=== PATIENT | male | born 1930 | race Caucasian/White ===

== ENCOUNTER 2020-02-14 12:14 | Outpatient (CLI) | payer MEDICARE, OTHER | END 2020-02-14 12:15 | disposition critical access hospital (66) | LOC: EMS 12:14 | PROVIDERS: ATTEND Surgery | DX: R63.0 Anorexia (principal); R53.1 Weakness; R32 Unspecified urinary incontinence; R41.0 Disorientation, unspecified | CPT/HCPCS: A0425; A0429 ==

== ENCOUNTER 2020-02-14 12:31 | Inpatient (IN) | payer MEDICARE, OTHER ==
--- NOTE | 2020-02-14 12:41 | ED Physician Documentation ---
PD HPI ALTERED MENTAL STATUS - Stated complaint Stated Complaint: WEAKNESS - History obtained from History obtained from: EMS - History of Present Illness Timing - onset: Today, Other (This is a demented 89-year-old gentleman who presents by ambulance. He is unable to provide any history, all of the history is from the paramedics and his primary care physician called prior to arrival. Reportedly he is demented. I do not know anything else about his medical history initially.) - Additional information Additional information: No family has arrived available on initial arrival. I am led to believe they are on the way to the hospital. I do not have a medication list. Review of Systems Unable to obtain: Confused, Dementia PD PAST MEDICAL HISTORY - Past Medical History Cardiovascular: Hypertension, High cholesterol, Coronary artery disease, Peripheral Vascular Disease, [place] Respiratory: COPD Neuro: Dementia, Other Endocrine/Autoimmune: None GI: None : None HEENT: Chronic vision loss Psych: None Musculoskeletal: None Derm: Eczema, Other - Past Surgical History Past Surgical History: Yes Cardiovascular: CABG - Present Medications Home Medications: Ambulatory Orders Medication Instructions Recorded Confirmed Spironolactone 25 mg PO DAILY 01/05/19 10/03/19 Furosemide [Lasix] 20 mg PO DAILY 09/21/19 10/03/19 Potassium Chloride 10 meq PO DAILY 09/21/19 10/03/19 Simvastatin [Zocor] 5 mg PO DAILY 09/21/19 10/03/19 Clindamycin [Cleocin] 300 mg PO DAILY 10/03/19 10/03/19 - Allergies Allergies/Adverse Reactions: Allergies Allergy/AdvReac Type Severity Reaction Status Date / Time hydrochlorothiazide Allergy Unknown Verified 09/21/19 15:03 influenza virus vacc Allergy Unknown Verified 09/21/19 15:03 trivalent, split [From Fluzone] - Social History Does the pt smoke?: Yes Smoking Status: Former smoker Does the pt drink ETOH?: Yes PD ED PE NORMAL - Vitals Vital signs reviewed: Yes - General General: Other (He is alert, but does not follow commands. He is talking, but does not say anything useful, did say "hey" once, and otherwise asked "are you trying to kill me?" He is disheveled and incontinent of urine) - HEENT HEENT: PERRL, EOMI - Neck Neck: Supple, no meningeal sign, No bony TTP - Cardiac Cardiac: RRR (Sternotomy scar), No murmur - Respiratory Respiratory: No respiratory distress, Other (Diminished at the left base) - Abdomen Abdomen: Other (Mild diffuse tenderness) - Back Back: No CVA TTP, No spinal TTP - Derm Derm: Normal color, Warm and dry - Extremities Extremities: Other (Chronic appearing venous stasis cellulitis of the legs) - Neuro Eye Opening: Spontaneous Motor: Localizes to Pain Verbal: Inappropriate GCS Score: 12 Results - Vitals Vitals: Vital Signs - 24 hr 02/14/20 02/14/20 12:31 13:30 Temperature 36.6 C Heart Rate 80 86 Respiratory 18 13 Rate Blood Pressure 152/78 H 133/79 H O2 Saturation 97 97 Oxygen O2 Source Room air - EKG (time done) 1300 Rate: Rate (enter#) (88) Rhythm: NSR (With PACs) [place]: Normal Intervals: Other (IVCD) QRS: Normal Ischemia: Non specific changes Computer interpretation: Agree with computer - Labs Labs: Laboratory Tests 02/14/20 02/14/20 02/14/20 12:47 13:00 13:00 WBC 14.5 H RBC 4.69 L Hgb 14.8 Hct 44.5 MCV 94.9 H MCH 31.6 H MCHC 33.3 RDW 13.0 Plt Count 154 MPV 11.1 Neut # (Auto) 12.0 H Lymph # (Auto) 1.1 L [place] # (Auto) 1.2 H Eos # (Auto) 0.1 Baso # (Auto) 0.1 Absolute Nucleated RBC 0.00 Nucleated RBC % 0.0 PT 14.1 H INR 1.3 H Sodium Potassium Chloride Carbon Dioxide Anion Gap BUN Creatinine Estimated GFR (MDRD) Glucose Lactic Acid Calcium Total Bilirubin AST ALT Alkaline Phosphatase Total Creatine Kinase CK-MB (CK-2) Total Protein Albumin Globulin Albumin/Globulin Ratio Lipase TSH Urine Color DARK YELLOW Urine Clarity CLEAR Urine pH 5.5 Ur Specific [facility] [place] >=1.030 H Urine Protein TRACE Urine Glucose (UA) NEGATIVE Urine Ketones 40 H Urine Occult Blood MODERATE H Urine Nitrite NEGATIVE Urine Bilirubin NEGATIVE Urine Urobilinogen 0.2 (NORMAL) Ur Leukocyte Esterase NEGATIVE Urine RBC 0-5 Urine WBC 0-3 Ur Squamous Epith Cells NONE SEEN Urine Bacteria Few Ur Microscopic Review INDICATED Urine Culture Comments NOT INDICATED Salicylates Acetaminophen Ethyl Alcohol 02/14/20 02/14/2002/13/20 13:00 13:00 13:00 WBC RBC Hgb Hct MCV MCH MCHC RDW Plt Count MPV Neut # (Auto) Lymph # (Auto) [place] # (Auto) Eos # (Auto) Baso # (Auto) Absolute Nucleated RBC Nucleated RBC % PT INR Sodium 140 Potassium 3.8 Chloride 99 L Carbon Dioxide 27 Anion Gap 14.0 H BUN 19 Creatinine 1.0 Estimated GFR (MDRD) 71 L Glucose 101 H Lactic Acid Calcium 8.9 Total Bilirubin 1.7 H AST 24 ALT 19 Alkaline Phosphatase 41 L Total Creatine Kinase 90 CK-MB (CK-2) 3.8 Total Protein 7.2 Albumin 3.5 Globulin 3.7 Albumin/Globulin Ratio 0.9 L Lipase 35 TSH 1.32 Urine Color Urine Clarity Urine pH Ur Specific [facility] [place] Urine Protein Urine Glucose (UA) Urine Ketones Urine Occult Blood Urine Nitrite Urine Bilirubin Urine Urobilinogen Ur Leukocyte Esterase Urine RBC Urine WBC Ur Squamous Epith Cells Urine Bacteria Ur Microscopic Review Urine Culture Comments Salicylates < 6.0 Acetaminophen < 10 L Ethyl Alcohol < 5.0 02/14/20 13:00 WBC RBC Hgb Hct MCV MCH MCHC RDW Plt Count MPV Neut # (Auto) Lymph # (Auto) [place] # (Auto) Eos # (Auto) Baso # (Auto) Absolute Nucleated RBC Nucleated RBC % PT INR Sodium Potassium Chloride Carbon Dioxide Anion Gap BUN Creatinine Estimated GFR (MDRD) Glucose Lactic Acid 1.5 Calcium Total Bilirubin AST ALT Alkaline Phosphatase Total Creatine Kinase CK-MB (CK-2) Total Protein Albumin Globulin Albumin/Globulin Ratio Lipase TSH Urine Color Urine Clarity Urine pH Ur Specific [facility] [place] Urine Protein Urine Glucose (UA) Urine Ketones Urine Occult Blood Urine Nitrite Urine Bilirubin Urine Urobilinogen Ur Leukocyte Esterase Urine RBC Urine WBC Ur Squamous Epith Cells Urine Bacteria Ur Microscopic Review Urine Culture Comments Salicylates Acetaminophen Ethyl Alcohol - Rads (name of study) 1v chest Radiology: EMP read contemporaneously (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 Said that appetite has been down for 2 weeks, and stop eating 2 to 3 days ago. Did not feel like his dementia had worsened in that timeframe. Clarifies that the sternotomy was from a remote bypass. Says the patient is not on any prescription medic) ED course: The son arrived the after the patient's arrival. Said that appetite has been down for 2 weeks, and stop eating 2 to 3 days ago. Did not feel like his dementia had worsened in that timeframe. Clarifies that the sternotomy was from a remote bypass. Says the patient is not on any prescription medications currently but was on a diuretic. 89-year-old gentleman with dementia Presents with failure to thrive. No appetite not eating. Work-up demonstrates an elevated white count. Potential pneumonia both clinically and radiographically. We did discuss goals of care with the son, he feels the patient would like to be DNR/DNI. Departure - Departure Disposition: 66 [facility] DC/Xfer Clinical Impression: Pneumonia Qualifiers: Pneumonia type: due to unspecified organism Laterality: left Lung location: lower lobe of lung Qualified Code(s): J18.9 - Pneumonia, unspecified organism Dementia Qualifiers: Dementia type: unspecified type Dementia behavioral disturbance: without behavioral disturbance Qualified Code(s): F03.90 - Unspecified dementia without behavioral disturbance Failure to thrive Qualifiers: Failure to thrive age range: in adult Qualified Code(s): R62.7 - Adult failure to thrive Abdominal tenderness Qualifiers: Abdominal location: generalized Presence of rebound: absent Qualified Code(s): R10.817 - Generalized abdominal tenderness Condition: Fair
[2020-02-14 13:04] LABS: BASOPHILS # (AUTO) 0.1 10^3/uL (0.0-0.1); BASOPHILS % (AUTO) 0.3 %; EOSINOPHILS # (AUTO) 0.1 10^3/uL (0.0-0.7); EOSINOPHILS % (AUTO) 0.3 %; HGB - HEMOGLOBIN 14.8 g/dL (14.0-18.0); LYMPHOCYTES # (AUTO) 1.1 10^3/uL (1.5-3.5); LYMPHOCYTES % (AUTO) 7.7 %; MEAN CORPUSCULAR HEMOGLOBIN 31.6 pg (27.0-31.0); MEAN CORPUSCULAR HGB CONC 33.3 g/dL (32.0-36.0); MEAN CORPUSCULAR VOLUME 94.9 fL (80.0-94.0); MEAN PLATELET VOLUME 11.1 fL (7.4-11.4); MONOCYTES # (AUTO) 1.2 10^3/uL (0.0-1.0); MONOCYTES % (AUTO) 8.3 %; NEUTROPHILS % (AUTO) 82.7 %; PLT - PLATELET COUNT 154 10^3/uL (130-450); RED BLOOD COUNT 4.69 10^6/uL (4.70-6.10); WHITE BLOOD COUNT 14.5 x10^3/uL (4.8-10.8)
[2020-02-14 13:09] LABS: INR 1.3 (0.8-1.2); PT - PROTHROMBIN TIME 14.1 secs (9.9-12.6)
--- NOTE | 2020-02-14 13:10 | XRAY Report ---
PROCEDURE: Chest 1 View X-Ray INDICATIONS: altered, sternotomy for unknown reason TECHNIQUE: One view of the chest was acquired. COMPARISON: The patient's chin and head obscure the upper mediastinum and upper lung hodge. FINDINGS: Surgical changes and devices: There are median sternotomy changes. Prior CABG.. Lungs and pleura: Indistinct left costophrenic sulcus may be secondary to projection. The visible por tion of the right lung is clear. Calcified pleural plaquing is seen at the right upper lobe. The visi ble portion of the left lung is without significant opacity. The majority of the left upper lobe is n ot seen. Mediastinum: Mediastinum is largely obscured. Heart size is grossly normal. Bones and chest wall: A remote, healed left humeral neck fracture and left rib fractures. IMPRESSION: 1. Limited study secondary to patient positioning and obscuration of the upper chest. 2. No definite pneumonia although there is ill-defined opacity at the left lung base (felt mainly due to projection. 3. Remote left rib and humerus fractures. Reviewed by: Lolly Aragon MD on 02/14/2020 1:08 PM PDT Approved by: Lolly Aragon MD on 02/14/2020 1:08 PM PDT Station ID: [id number]
[2020-02-14 13:17] LABS: ACETAMINOPHEN < 10 ug/mL (10-30); ALBUMIN 3.5 g/dL (3.2-5.5); ALBUMIN/GLOBULIN RATIO 0.9 (1.0-2.2); ALKALINE PHOSPHATASE 41 IU/L (42-121); ALT ALANINE AMINOTRANSFERASE 19 IU/L (10-60); AST ASPARTATE AMINOTRANSFERASE 24 IU/L (10-42); BILIRUBIN,TOTAL 1.7 mg/dL (0.2-1.0); BUN - BLOOD UREA NITROGEN 19 mg/dL (6-20); CALCIUM 8.9 mg/dL (8.5-10.3); CARBON DIOXIDE - CO2 27 mmol/L (21-32); CHLORIDE 99 mmol/L (101-111); CK- CREATINE KINASE 90 IU/L (22-269); GLUCOSE 101 mg/dL (70-100); LIPASE 35 U/L (22-51); SALICYLATE < 6.0 mg/dL; SODIUM 140 mmol/L (135-145); TOTAL PROTEIN 7.2 g/dL (6.7-8.2)
[2020-02-14 13:23] LABS: GLUCOSE, URINE (UA) NEGATIVE (NEGATIVE); KETONES,URINE (UA) 40 mg/dL (NEGATIVE); LEUKOCYTE ESTERASE, URINE NEGATIVE (NEGATIVE); NITRITE,URINE NEGATIVE (NEGATIVE); OCCULT BLOOD,URINE MODERATE (NEGATIVE); PH,URINE 5.5 PH (5.0-7.5); PROTEIN,URINE TRACE mg/dL (NEGATIVE); UROBILINOGEN,URINE 0.2 (NORMAL) E.U./dL (NORMAL)
[2020-02-14 13:29] LABS: BILIRUBIN,URINE NEGATIVE (NEGATIVE); CLARITY,URINE CLEAR (CLEAR); ICTOTEST,URINE NEGATIVE
[2020-02-14 13:50] LABS: BACTERIA,URINE Few /HPF (None Seen); RBC,URINE 0-5 /HPF (0-5); SQUAMOUS EPITHELIAL CELL,UR NONE SEEN (<= Few)
[2020-02-14] MEDS ORDERED: IOVERSOL 320 100 ML VIAL IVP ONE ×2 (13:57→16:33)
--- NOTE | 2020-02-14 14:50 | CT Report ---
PROCEDURE: Abdomen/Pelvis W INDICATIONS: abdominal pain CONTRAST: IV CONTRAST: Optiray 320 ml: 100 PO CONTRAST: *NO PO CONTRAST TECHNIQUE: After the administration of oral and intravenous contrast, 5 mm thick sections acquired from the diap hragms to the symphysis. 5 mm thick coronal and sagittal reformats were acquired. For radiation dos e reduction, the following was used: automated exposure control, adjustment of mA and/or kV accordin g to patient size. COMPARISON: Retroperitoneal ultrasound 12/10/2014. FINDINGS: Image quality: There is mild motion artifact and beam hardening artifact. ABDOMEN: Lung bases: There is mild dependent atelectasis bilaterally. Heart size is normal. Solid organs: Within segment 6 of the inferior right hepatic lobe, there are a few oval hypodense le sions, with the largest measuring up to 1.6 cm. This demonstrates attenuation values slightly higher than expected for a simple cyst and likely represents a complex cyst. 2 additional smaller hypodensit ies are too small to characterize but also likely represent cysts. Biliary system is non dilated. Pa ncreas enhances normally. No adrenal nodules. Kidneys demonstrate normal size and enhancement, with out hydronephrosis. Peritoneum and bowel: Bowel loops demonstrate normal wall thickness and caliber. The appendix is nor mal in appearance. There are a few colonic diverticula without acute diverticulitis. No free fluid or air. Nodes and vessels: No retroperitoneal or mesenteric adenopathy by size criteria. Aorta and inferior vena cava are normal in size. There is atherosclerotic vascular calcification including bulky calcif ied plaque in the aorta at the origin of the right renal artery. Miscellaneous: No ventral hernias. PELVIS: Genitourinary: Bladder wall thickness is normal. Miscellaneous: No inguinal hernias or adenopathy. Bones: No suspicious bony lesions. No vertebral body compression fractures. IMPRESSION: 1. No definite acute intra-abdominal abnormality. 2. Colonic diverticulosis without acute diverticulitis. 3. Probable complex right hepatic cyst. Reviewed by: Xavi Liao MD on 02/14/2020 2:48 PM PDT Approved by: Xavi Liao MD on 02/14/2020 2:48 PM PDT Station ID: [id number]
[2020-02-14] MEDS ORDERED: cefTRIAXone 2 GM in SODIUM CHLORIDE 0.9% MINIBAG 100 ML IV STA (15:30)
[2020-02-14] MEDS ORDERED: AZITHROMYCIN INJ 500 MG in SODIUM CHLORIDE 0.9% 250 ML IV STA (15:30)
--- NOTE | 2020-02-14 15:34 | CT Report ---
PROCEDURE: HEAD WO INDICATIONS: altered, headache TECHNIQUE: Noncontrast 4.5 mm thick angled axial sections acquired from the foramen magnum to the vertex. For r adiation dose reduction, the following was used: automated exposure control, adjustment of mA and/or kV according to patient size. COMPARISON: Head CT 04/03/2014. FINDINGS: Image quality: Evaluation limited by suboptimal patient positioning. CSF spaces: There is moderate cerebral volume loss with prominence of ventricles and sulci. Findings are similar to the prior study. Basal cisterns are patent. No extra-axial fluid collections. Brain: No intracranial hemorrhage, mass, or mass effect. There are bilateral periventricular and subc ortical hypodensities consistent with moderate chronic small vessel ischemic changes. The morelos-white matter junction appears preserved. Skull and face: Calvarium and visualized facial bones are intact, without suspicious lesions. Sinuses: Visualized sinuses demonstrate mucosal thickening within the partially visualized right max illary and ethmoid sinuses. Mastoid air cells are clear. IMPRESSION: 1. No definite acute intracranial abnormality. 2. Moderate chronic white matter small vessel ischemic changes and cerebral volume loss. Reviewed by: Xavi Liao MD on 02/14/2020 3:33 PM PDT Approved by: Xavi Liao MD on 02/14/2020 3:33 PM PDT Station ID: [id number]
[2020-02-14] MEDS ORDERED: SODIUM CHLORIDE FLUSH 0.9% 10 ML SYRINGE IVP PRN (16:06)
--- NOTE | 2020-02-14 16:39 | PHARMACY PROGRESS NOTE ---
- Best Possible Medication History Admit Date and Time: 02/14/20 1606 Processed by: Pharmacy Medication History completed: Yes Patient Interview: Completed Secondary Source(s): Other family member, Pharmacy records, Insurance records As the person ultimately responsible for medication therapy, providers are able to order a medication from an existing home medication list in [facility] via the "Reconcile Routine" prior to Confirmation of that medication by family readiness support assistant. Such practice is discouraged except when the physician, in their clinical judgment, deems that a medical need exists for a medication without regard to previous use.
[2020-02-14] MEDS: D5NS W/20 MEQ KCL 1,000 ML IV SCH (17:32)
[2020-02-14] MEDS: SODIUM CHLORIDE FLUSH 0.9% 10 ML SYRINGE IVP SCH ×2 (17:35→23:46)
--- NOTE | 2020-02-14 19:21 | HISTORY & PHYSICAL EXAMINATION ---
Chief Complaint - Chief Complaint Chief Complaint: Poor appetite History of Present Illness - Admitted From Admitted From:: Home - History Obtained From Records Reviewed: Yes History obtained from: ER Physician, EMR Exam Limitations: Patient has dementia and is poor historian. Unable to contact family. - History of Present Illness HPI Comment/Other: This is a 89-year-old male with a past medical history significant for dementia and what also appears to be hypertension, coronary artery disease who presents today from home after his son was concerned he had not been eating or drinking for the past 2 weeks. History is obtained from the ER physician and the EMR as patient has significant dementia unable to provide a history. I have attempted to contact the son via phone but unable to reach him to obtain further history. The son told the emergency department provider that the patient's appetite has been decreased for the past 2 weeks and he stopped eating 2 to 3 days ago. He has dementia at baseline and is oriented to self. He told the provider in the emergency room and he does not take any medications at this time. He also told the ER provider that he feels the patient would want to be a DNR. In the emergency department, he was found to be afebrile with temperature of 36.6 C. He was not tachycardic with a heart rate of 80. Blood pressure is 152/78. He was not tachypneic and saturating well on room air with an oxygen saturation of 97%. Chest x-ray was limited but did not reveal an obvious infil trate. There was opacity in the left lung base but this was felt to be due to projection. CT of the abdomen and pelvis revealed no acute abnormalities. Labs revealed a white count of 14.5 with a left shift. Otherwise the rest of his labs were unremarkable. It was felt that there was concern for pneumonia and therefore medicine was consulted for admission. Was unable to discuss goals of care with the patient or the son. I will attempt to call him again to discuss. For the time being, the patient be made a DNR as per the discussion the ER provider had with the patient's son. History - Past Medical History Cardiovascular: reports: Hypertension, High cholesterol, Coronary artery disease, Peripheral Vascular Disease, [place] Respiratory: reports: COPD Neuro: reports: Dementia, Other Endocrine/Autoimmune: reports: None GI: reports: None : reports: None HEENT: reports: Chronic vision loss Psych: reports: None Musculoskeletal: reports: None Derm: reports: Eczema, Other MRSA Hx?: No - Past Surgical History Cardiovascular: reports: CABG - Family & Social History Family History Comment/Other: Unable to obtain at this time. Living arrangement: At home Living Situation: With family Social History Notes: The patient reportedly lives at home with his son. Unable to obtain any further history at this time. Meds/Allgy - Home Medications Home Medications: Ambulatory Orders Medication Instructions Recorded Confirmed No Known Home Medications 02/14/20 02/14/20 - Allergies Allergies/Adverse Reactions: Allergies Allergy/AdvReac Type Severity Reaction Status Date / Time hydrochlorothiazide Allergy Unknown Verified 09/21/19 15:03 influenza virus vacc Allergy Unknown Verified 09/21/19 15:03 trivalent, split [From Fluzone] Review of Systems - All Other Systems All Other Systems: reports: Other (Unable to obtain due to dementia.) Prior Level of Functionality: Patient has advanced dementia at baseline. Exam - Vital Signs Vital Signs: Vital Signs x48h Temp Pulse Resp BP Pulse Ox 02/14/20 13:30 86 13 133/79 H 97 02/14/20 12:31 36.6 C 80 18 152/78 H 97 - Physical Exam General Appearance: positive: No acute distress, Alert, Other (He does not follow commands. He will speak in interim times and ask "Am I in the hospital?" Appears disheveled.) Eyes Bilateral: positive: Normal inspection ENT: positive: ENT inspection nml, Dry mucous membranes Respiratory: positive: No respiratory distress, Other (Diminished breath sounds bilaterally). negative: Wheezes, Rales Cardiovascular: positive: Regular rate & rhythm, No murmur. negative: Tachycardia, Bradycardia Abdomen: positive: Non-tender, No distention. negative: Tenderness, Guarding, Rebound Skin: positive: Warm, Dry, Other (He has chronic skin changes over the bilateral lower extremities likely from venous stasis.) Extremities: positive: Pedal edema (+1 pitting edema in bilateral lower e xtremities.) Neurologic/Psychiatric: positive: Other (No focal motor deficits on exam.). negative: Disoriented to person Conclusion/Plan - Problem List (1) Community acquired pneumonia Conclusion/Plan: There is concern for possible pneumonia on chest x-ray also may just be due to projection. CT abdomen pelvis did catch by the lung bases which showed no evidence of infiltrate transected atelectasis. Given his white count and decline over the past few days, we will treat him empirically for community- acquired pneumonia. Fortunately, there is no evidence of hypoxia and he is not tachypneic. We will start him on ceftriaxone and azithromycin IV. Trend his white count. Will consider repeating x-ray if need be. Qualifiers: Laterality: left (2) Failure to thrive Conclusion/Plan: This may be secondary to suspected pneumonia or due to decline from his dementia. CT of the abdomen pelvis did not suggest any acute normality would explain his poor appetite. Will place a nutrition consult. We will treat him with IV fluids. We are hopeful that as we treat the possible pneumonia, his appetite may improve. Qualifiers: Failure to thrive age range: in adult Qualified Code(s): R62.7 - Adult failure to thrive (3) Dehydration Conclusion/Plan: He appears dry on exam. There is no evidence of dehydration based off his labs but his oral mucosa does appear dry. We will give him a bolus of saline and continue him on IV maintenance fluids. (4) Dementia Conclusion/Plan: He appears to be at baseline from a dementia standpoint. Delirium precautions. Avoid sedatives. Qualifiers: Dementia type: unspecified type Dementia behavioral disturbance: without behavioral disturbance Qualified Code(s): F03.90 - Unspecified dementia without behavioral disturbance (5) History of coronary artery disease Conclusion/Plan: Evidence of prior CABG on chest x-ray. He is reportedly not on any medication at home. This went to be confirmed by pharmacy. EKG is not suggestive of ischemia. We will check a troponin. (6) Chronic venous stasis dermatitis of both lower extremities Conclusion/Plan: There is not appear to be concern for cellulitis at this time. We will ask wound care to evaluate the patient given he reportedly follows with him on an outpatient basis. - Lab Results Lab results reviewed: Yes Fish Bones: 02/14/20 13:00 02/14/20 13:00 - Diagnostic Imaging Results Diagnostic Imaging Results: positive: Final report reviewed - EKG Results EKG Interpreted Independently: Yes EKG Comparison: No prior EKG EKG Findings: EKG shows sinus rhythm with PACs. No obvious signs of ischemia. There is some motion artifact present. Core Measures - Anticipated LOS I expect patient to be DC'd or transferred within 96 hours.: Yes - Issues Hospital Issues and Management Plan: 89-year-old male presents with failure to thrive. There is concern for possible pneumonia and therefore he will be admitted for IV antibiotics and hydration. - DVT/VTE - Prophylaxis VTE/DVT Device ordered at admit?: Yes VTE/DVT Prophylaxis med ordered at admit?: Yes
[2020-02-14] MEDS ORDERED: FAMOTIDINE 20 MG/2 ML SYRINGE IVP SCH (21:00)
[2020-02-14] MEDS ORDERED: SODIUM CHLORIDE 0.9% 1,000 ML IV ONE (21:43)
[2020-02-15 06:17] LABS: BASOPHILS % (AUTO) 0.3 %; EOSINOPHILS # (AUTO) 0.1 10^3/uL (0.0-0.7); HGB - HEMOGLOBIN 13.1 g/dL (14.0-18.0); LYMPHOCYTES # (AUTO) 0.8 10^3/uL (1.5-3.5); LYMPHOCYTES % (AUTO) 7.3 %; MEAN CORPUSCULAR HEMOGLOBIN 31.3 pg (27.0-31.0); MEAN CORPUSCULAR HGB CONC 33.2 g/dL (32.0-36.0); MEAN PLATELET VOLUME 11.2 fL (7.4-11.4); MONOCYTES # (AUTO) 1.1 10^3/uL (0.0-1.0); MONOCYTES % (AUTO) 9.6 %; NEUTROPHILS # (AUTO) 9.4 10^3/uL (1.5-6.6); NEUTROPHILS % (AUTO) 81.3 %; PLT - PLATELET COUNT 141 10^3/uL (130-450); RED BLOOD COUNT 4.19 10^6/uL (4.70-6.10); WHITE BLOOD COUNT 11.6 x10^3/uL (4.8-10.8)
[2020-02-15 06:24] LABS: CALCIUM 7.9 mg/dL (8.5-10.3); CREATININE 0.7 mg/dL (0.6-1.2); PHOSPHORUS 1.9 mg/dL (2.5-4.6)
[2020-02-15] MEDS ORDERED: POTASSIUM PHOSPHATE 15 MMOL in SODIUM CHLORIDE 0.9% 250 ML IV ONE (07:30)
[2020-02-15] MEDS: D5NS W/20 MEQ KCL 1,000 ML IV SCH ×2 (07:47→17:15)
[2020-02-15] MEDS ORDERED: cefTRIAXone 1 GM VIAL ONE (08:23)
[2020-02-15] MEDS: SODIUM CHLORIDE FLUSH 0.9% 10 ML SYRINGE IVP SCH ×2 (08:58→17:16)
[2020-02-15] MEDS: ENOXAPARIN 40 MG/0.4 ML SYRINGE SUBQ SCH (08:58)
[2020-02-15] MEDS ORDERED: AZITHROMYCIN INJ 500 MG in SODIUM CHLORIDE 0.9% 250 ML IV SCH (09:00)
[2020-02-15] MEDS ORDERED: cefTRIAXone 2 GM in SODIUM CHLORIDE 0.9% MINIBAG 100 ML IV SCH (09:00)
--- NOTE | 2020-02-15 10:23 | PROVIDER PROGRESS NOTE ---
Assessment/Plan - Problem List (1) Bacteremia Assessment/Plan: 02/14 pt's blood culture in both tube show Staph aureus which sensitivity study is still pending. it is likely from his bilateral lower extremities infection. lower extremities infection smell odor. Add vancomycin, plus change antibiotics from Rocephin to the cefepime for coverage of possible Pseudomonas infection In his lower extremities infection. will order ECHO to r/o Endo. (2) Community acquired pneumonia Conclusion/Plan: 02/14 Now patient has vancomycin and cefepime antibiotics, so all this ant ibiotics will cover for possible pneumonia. Patient has 95-98 sats on the room air, patient has no cough or other respiratory symptoms at this point. (3) Failure to thrive Conclusion/Plan: 02/14 Patient was report he stopped eating for 2 or 3 days, this could be multiple factors combination, the reasons include patient has severe infection, plus patient has advanced dementia. We will continue dysphagia diet, precaution of aspiration, turn And reposition of the patient To prevent of pressure ulcer. (4) Dehydration Conclusion/Plan: 618, improved, will continue intravenous IV fluid, precaution of fluid over-loaded. 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 Both foot and lower extremities are warm today and odor smell, it is likely some infection was on. added Xray to R/O lower extremity to the level of osteomyelitis infection, on ultrasound to rule out DVT of clots. Consult wound care to have the patient skin care - Current Meds Current Meds: Current Medications Generic Name Dose Route Start Last Admin Trade Name Freq PRN Reason Stop Dose Admin Enoxaparin Sodium 40 mg 02/15/20 09:00 02/15/20 08:58 Lovenox SUBQ 40 mg DAILY [facility] Administration Potassium Chloride/Dextrose/Sod Cl 1,000 mls @ 83.33 mls/hr 02/14/20 17:00 02/15/20 07:47 IV 83.33 mls/hr .Q12H1M [facility] Administration Potassium Phosphate 15 mmol/ 255 mls @ 42.5 mls/hr 02/15/20 07:30 02/15/20 08:58 Sodium Chloride IV 02/15/20 13:29 42.5 mls/hr ONCE ONE Administration Sodium Chloride 10 ml 02/14/20 17:00 02/15/20 08:58 Normal Saline Flush 0.9% IVP Not Given 0100,0900,1700 [facility] - Lab Result Fish Bone Diagrams: 02/15/20 06:00 02/15/20 06:00 - Additional Planning My Orders: My Active Orders 02/15/20 08:27 Foot 3 View BILAT [XR] Routine 02/15/20 08:40 Duplex Ext Veins Bilateral [US] Routine 02/15/20 09:00 Cefepime 1 gm Sodium Chloride 0.9% Minibag [Normal Saline 0.9% Minibag] 100 ml IV Q12H 02/15/20 09:53 Miscellaenous Nursing Order [RC] PRN Turn and Reposition [RC] PRN 02/15/20 10:00 Vancomycin Inj [Vancomycin] 1 gm Sodium Chloride 0.9% [Normal Saline 0.9%] 250 ml IV Q12H 02/15/20 10:06 Miscellaenous Nursing Order [RC] PRN 02/15/20 12:00 Neutra-Phos [K-Phos Neutral] 250 mg PO TIDWM 02/15/20 17:00 Saccharomyces Boulardii [Florastor] 250 mg PO BIDWM Subjective - Subjective Nursing Reports: No Complaints Objective Vital Signs: Vital Signs - 24 hr 02/14/20 02/14/20 02/14/20 12:31 13:30 19:26 Temperature 36.6 C 37.3 C Heart Rate 80 86 Heart Rate [ 87 Brachial] Respiratory 18 13 19 Rate Blood Pressure 152/78 H 133/79 H Blood Pressure 142/61 H [Right Brachial artery] O2 Saturation 97 97 98 02/15/20 02/15/20 00:00 08:00 Temperature 37.4 C 35.8 C L Heart Rate Heart Rate [ 79 81 Brachial] Respiratory 18 20 Rate Blood Pressure Blood Pressure 128/78 133/73 H [Right Brachial artery] O2 Saturation 98 95 Oxygen O2 Source Room air I&O (Last 24 Hrs): Intake and Output Totals x24h 02/13/20 02/14/20 02/15/20 23:59 23:59 23:59 Intake Total 1868.035 761.965 Output Total 325 400 Balance 1543.035 361.965 General: Alert, No acute distress HEENT: Atraumatic Neck: Supple Neuro: Alert, Disoriented, Non Focal Cardiovascular: Regular rate, Normal S1, Normal S2 Respiratory: Chest non-tender, No respiratory distress Abdomen: Normal bowel sounds, Soft - Results Results: Laboratory Results WBC 11.6 x10^3/uL (4.8-10.8) H 02/15/20 06:00 RBC 4.19 10^6/uL (4.70-6.10) L 02/15/20 06:00 Hgb 13.1 g/dL (14.0-18.0) L 02/15/20 06:00 Hct 39.4 % (42.0-52.0) L 02/15/20 06:00 MCV 94.0 fL (80.0-94.0) 02/15/20 06:00 MCH 31.3 pg (27.0-31.0) H 02/15/20 06:00 MCHC 33.2 g/dL (32.0-36.0) 02/15/20 06:00 RDW 13.0 % (12.0-15.0) 02/15/20 06:00 Plt Count 141 10^3/uL (130-450) 02/15/20 06:00 MPV 11.2 fL (7.4-11.4) 02/15/20 06:00 Neut # (Auto) 9.4 10^3/uL (1.5-6.6) H 02/15/20 06:00 Lymph # (Auto) 0.8 10^3/uL (1.5-3.5) L 02/15/20 06:00 [place] # (Auto) 1.1 10^3/uL (0.0-1.0) H 02/15/20 06:00 Eos # (Auto) 0.1 10^3/uL (0.0-0.7) 02/15/20 06:00 Baso # (Auto) 0.0 10^3/uL (0.0-0.1) 02/15/20 06:00 Absolute Nucleated RBC 0.00 x10^3/uL 02/15/20 06:00 Nucleated RBC % 0.0 /100WBC 02/15/20 06:00 PT 14.1 secs (9.9-12.6) H 02/14/20 13:00 INR 1.3 (0.8-1.2) H 02/14/20 13:00 Sodium 139 mmol/L (135-145) 02/15/20 06:00 Potassium 3.6 mmol/L (3.5-5.0) 02/15/20 06:00 Chloride 104 mmol/L (101-111) 02/15/20 06:00 Carbon Dioxide 24 mmol/L (21-32) 02/15/20 06:00 Anion Gap 11.0 (6-13) 02/15/20 06:00 BUN 12 mg/dL (6-20) 02/15/20 06:00 Creatinine 0.7 mg/dL (0.6-1.2) 02/15/20 06:00 Estimated GFR (MDRD) 107 (>89) 02/15/20 06:00 Glucose 117 mg/dL (70-100) H 02/15/20 06:00 Lactic Acid 1.5 mmol/L (0.5-2.2) 02/14/20 13:00 Calcium 7.9 mg/dL (8.5-10.3) L 02/15/20 06:00 Phosphorus 1.9 mg/dL (2.5-4.6) L 02/15/20 06:00 Magnesium 2.0 mg/dL (1.7-2.8) 02/15/20 06:00 Total Bilirubin 1.7 mg/dL (0.2-1.0) H 02/14/20 13:00 AST 24 IU/L (10-42) 02/14/20 13:00 ALT 19 IU/L (10-60) 02/14/20 13:00 Alkaline Phosphatase 41 IU/L (42-121) L 02/14/20 13:00 Total Creatine Kinase 90 IU/L (22-269) 02/14/20 13:00 CK-MB (CK-2) 3.8 ng/mL (0.6-6.3) 02/14/20 13:00 Troponin I High Sens 13.7 ng/L (2.3-19.7) 02/14/20 21:47 Total Protein 7.2 g/dL (6.7-8.2) 02/14/20 13:00 Albumin 3.5 g/dL (3.2-5.5) 02/14/20 13:00 Globulin 3.7 g/dL (2.1-4.2) 02/14/20 13:00 Albumin/Globulin Ratio 0.9 (1.0-2.2) L 02/14/20 13:00 Lipase 35 U/L (22-51) 02/14/20 13:00 TSH 1.32 uIU/mL (0.34-5.60) 02/14/20 13:00 Urine Color DARK YELLOW 02/14/20 12:47 Urine Clarity CLEAR (CLEAR) 02/14/20 12:47 Urine pH 5.5 PH (5.0-7.5) 02/14/20 12:47 Ur Specific [place] >=1.030 (1.002-1.030) H 02/14/20 12:47 Urine Protein TRACE mg/dL (NEGATIVE) 02/14/20 12:47 Urine Glucose (UA) NEGATIVE mg/dL (NEGATIVE) 02/14/20 12:47 Urine Ketones 40 mg/dL (NEGATIVE) H 02/14/20 12:47 Urine Occult Blood MODERATE (NEGATIVE) H 02/14/20 12:47 Urine Nitrite NEGATIVE (NEGATIVE) 02/14/20 12:47 Urine Bilirubin NEGATIVE (NEGATIVE) 02/14/20 12:47 Urine Urobilinogen 0.2 (NORMAL) E.U./dL (NORMAL) 02/14/20 12:47 Ur Leukocyte Esterase NEGATIVE (NEGATIVE) 02/14/20 12:47 Urine RBC 0-5 /HPF (0-5) 02/14/20 12:47 Urine WBC 0-3 /HPF (0-3) 02/14/20 12:47 Ur Squamous Epith Cells NONE SEEN (<= Few) 02/14/20 12:47 Urine Bacteria Few /HPF (None Seen) 02/14/20 12:47 Ur Microscopic Review INDICATED 02/14/20 12:47 Urine Culture Comments NOT INDICATED 06/17/20 12:47 Salicylates < 6.0 mg/dL 02/14/20 13:00 Acetaminophen < 10 ug/mL (10-30) L 02/14/20 13:00 Ethyl Alcohol < 5.0 mg/dL 02/14/20 13:00 Current Medications - Current Medications Current Medications: Active Medications Acetaminophen (Tylenol) 650 mg PO Q4HR PRN PRN Reason: Pain or Fever > 38C (100.4F) Enoxaparin Sodium (Lovenox) 40 mg SUBQ DAILY [facility] Last Admin: 02/15/20 08:58 Dose: 40 mg Documented by: Potassium Chloride/Dextrose/Sod Cl () 1,000 mls @ 83.33 mls/hr IV .Q12H1M [facility] Last Admin: 02/15/20 07:47 Dose: 83.33 mls/hr Documented by: Potassium Phosphate 15 mmol/ (Sodium Chloride) 255 mls @ 42.5 mls/hr IV ONCE ONE Stop: 02/15/20 13:29 Last Admin: 02/15/20 08:58 Dose: 42.5 mls/hr Documented by: Vancomycin HCl 1 gm/ Sodium (Chloride) 250 mls @ 167 mls/hr IV Q12H [facility] Cefepime HCl 1 gm/ Sodium (Chloride) 100 mls @ 200 mls/hr IV Q12H [facility] Saccharomyces Boulardii (Florastor) 250 mg PO BIDWM [facility] Sodium Chloride (Normal Saline Flush 0.9%) 10 ml IVP PRN PRN PRN Reason: NEEDED PER PROVIDER ORDERS Sodium Chloride (Normal Saline Flush 0.9%) 10 ml IVP 0100,0900,1700 [facility] Last Admin: 02/15/20 08:58 Dose: Not Given Documented by: Sodium Phosphate (K-Phos Neutral) 250 mg PO TIDWM [facility] No Known Home Medications 02/14/20
[2020-02-15] MEDS: CEFEPIME 1 GM in SODIUM CHLORIDE 0.9% MINIBAG 100 ML IV SCH ×2 (10:40→19:50)
[2020-02-15] MEDS: VANCOMYCIN INJ 1 GM in SODIUM CHLORIDE 0.9% 250 ML IV SCH ×2 (12:48→21:05)
[2020-02-15] MEDS: NEUTRA-PHOS 250 MG TABLET PO SCH ×2 (12:49→17:21)
[2020-02-15] MEDS: SACCHAROMYCES BOULARDII 250 MG CAPSULE PO SCH (17:21)
[2020-02-15] MEDS: MULTIVITAMIN W/MINERALS TABLET PO SCH (17:22)
[2020-02-15] MEDS ORDERED: MIN OIL/DIMETHICON/COCONUT OIL 92 GM TUBE TOP PRN (22:06)
[2020-02-16] MEDS: D5NS W/20 MEQ KCL 1,000 ML IV SCH ×2 (04:02→23:39)
[2020-02-16] MEDS: SODIUM CHLORIDE FLUSH 0.9% 10 ML SYRINGE IVP SCH ×3 (04:03→18:39)
[2020-02-16 05:49] LABS: BASOPHILS % (AUTO) 0.4 %; EOSINOPHILS # (AUTO) 0.2 10^3/uL (0.0-0.7); HGB - HEMOGLOBIN 12.9 g/dL (14.0-18.0); LYMPHOCYTES % (AUTO) 12.8 %; MEAN CORPUSCULAR HEMOGLOBIN 31.2 pg (27.0-31.0); MEAN CORPUSCULAR HGB CONC 33.5 g/dL (32.0-36.0); MEAN CORPUSCULAR VOLUME 93.2 fL (80.0-94.0); MEAN PLATELET VOLUME 11.6 fL (7.4-11.4); MONOCYTES # (AUTO) 0.8 10^3/uL (0.0-1.0); MONOCYTES % (AUTO) 10.3 %; NEUTROPHILS # (AUTO) 5.7 10^3/uL (1.5-6.6); NEUTROPHILS % (AUTO) 72.6 %; PLT - PLATELET COUNT 151 10^3/uL (130-450); RED BLOOD COUNT 4.13 10^6/uL (4.70-6.10); RED CELL DISTRIBUTION WIDTH 12.8 % (12.0-15.0); WHITE BLOOD COUNT 7.9 x10^3/uL (4.8-10.8)
[2020-02-16 06:05] LABS: CALCIUM 7.7 mg/dL (8.5-10.3); CREATININE 0.6 mg/dL (0.6-1.2); CRP - C-REACTIVE PROTEIN 11.4 mg/dL (0-1.0); PHOSPHORUS 2.6 mg/dL (2.5-4.6)
[2020-02-16] MEDS: NEUTRA-PHOS 250 MG TABLET PO SCH ×4 (09:51→18:40)
[2020-02-16] MEDS: POTASSIUM CHLORIDE 10 MEQ CAPSULE PO ONE ×2 (09:51→09:52)
[2020-02-16] MEDS: MULTIVITAMIN W/MINERALS TABLET PO SCH (09:51)
[2020-02-16] MEDS: SACCHAROMYCES BOULARDII 250 MG CAPSULE PO SCH ×2 (09:52→18:40)
[2020-02-16] MEDS: ENOXAPARIN 40 MG/0.4 ML SYRINGE SUBQ SCH (09:53)
--- NOTE | 2020-02-16 10:46 | XRAY Report ---
PROCEDURE: Foot 3 View BILAT INDICATIONS: osteomyelitis? abscess?Inpation TECHNIQUE: 3 views of the bilateral foot were acquired. COMPARISON: None. FINDINGS: Bones: There are degenerative changes of the right foot. Findings are most pronounced at the first m etatarsophalangeal joint. Partially imaged surgical fixation hardware and of the distal right fibula and distal right tibia. No acute fracture or malalignment of the right foot. No osseous erosions. There are degenerative changes of the left foot. Findings are most pronounced in the first metatarsop halangeal joint. No osseous erosions identified. No acute fracture or or malalignment. There is osteo penia involving the head of the metatarsal without evidence for fracture. No suspicious bony lesions. Soft tissues: No tibiotalar joint effusion. Achilles tendon appears normal. Vascular calcification s are noted. No evidence for soft tissue gas IMPRESSION: Bilateral foot without acute fracture or malalignment. No evidence for osseous erosions or suspicious intraosseous lesions. If there is persistent clinical concern for osteomyelitis or abscess, consider further evaluation wit h advanced imaging such as MRI or CT. Reviewed by: Terry Arroyo MD on 02/16/2020 10:44 AM PDT Approved by: Terry Arroyo MD on 02/16/2020 10:44 AM PDT Station ID: [id number]
--- NOTE | 2020-02-16 14:06 | PHARMACY PROGRESS NOTE ---
- Therapy Status Vancomycin regimen day #: 2 Therapy status: Awaiting steady state Basis for treatment: Empirical Trough goal: 15-20 - RADHA Risk Risk level for Acute Kidney Injury: Low Acute Kidney Injury risk factors: Baseline CrCl <50, IV contrast within 72 hrs, Goal trough >15 - Monitoring and Recommendation Clinical response to treatment: I&O Previous 24 hours 02/14/20 02/15/20 02/16/20 23:59 23:59 23:59 Intake Total 4463.939 5291.935 528.75 Output Total 325 1000 630 Balance 8077.083 9197.935 -101.25 Lab Results 02/16/20 02/15/20 02/14/20 05:15 06:00 13:00 BUN 8 12 19 Creatinine 0.6 0.7 1.0 Estimated GFR (MDRD) 127 107 71 L Cultures 02/14/20 13:27 Blood Blood Culture - Preliminary Staphylococcus Aureus 02/14/20 13:00 Blood - Left Arm Blood Culture - Preliminary Staphylococcus Aureus Monitoring plan: Daily serum creatinine
[2020-02-16] MEDS: VANCOMYCIN INJ 1 GM in SODIUM CHLORIDE 0.9% 250 ML IV SCH (14:20)
--- NOTE | 2020-02-16 14:50 | Ultrasound Report ---
PROCEDURE: Duplex Ext Veins Bilateral INDICATIONS: HORTA TECHNIQUE: Real-time imaging, as well as color and pulse Doppler interrogation, were performed of the deep veins of both legs from the inguinal ligament to the popliteal fossa. COMPARISON: None. FINDINGS: There is limited visualization of the right popliteal vein secondary to patient discomfort . Additionally, bilateral peroneal veins were not seen secondary to overlying subcutaneous edema. The deep veins are otherwise normally compressible, and free of intraluminal thrombus. Color and pulse Doppler demonstrate normal phasic intravascular flow. There is normal augmentation response to dista l compression maneuver. IMPRESSION: Evident study. No sonographic evidence for deep vein thrombosis where visualized. Reviewed by: Reshma Shah MD on 02/16/2020 2:48 PM PDT Approved by: Reshma Shah MD on 02/16/2020 2:48 PM PDT Station ID: [id number]
[2020-02-16] MEDS ORDERED: CEFEPIME 1 GM in SODIUM CHLORIDE 0.9% MINIBAG 100 ML IV SCH ×2 (16:00→23:00)
[2020-02-17 01:54] LABS: VANCOMYCIN,TROUGH 22.2 ug/mL (10.0-20.0)
[2020-02-17] MEDS: SODIUM CHLORIDE FLUSH 0.9% 10 ML SYRINGE IVP SCH ×3 (02:02→16:58)
[2020-02-17] MEDS: VANCOMYCIN INJ 1 GM in SODIUM CHLORIDE 0.9% 250 ML IV SCH (02:04)
[2020-02-17] MEDS: D5NS W/20 MEQ KCL 1,000 ML IV SCH ×2 (04:59→20:49)
[2020-02-17 05:19] LABS: BASOPHILS # (AUTO) 0.1 10^3/uL (0.0-0.1); EOSINOPHILS # (AUTO) 0.4 10^3/uL (0.0-0.7); EOSINOPHILS % (AUTO) 5.6 %; LYMPHOCYTES # (AUTO) 1.1 10^3/uL (1.5-3.5); MEAN CORPUSCULAR HEMOGLOBIN 30.3 pg (27.0-31.0); MEAN CORPUSCULAR HGB CONC 32.2 g/dL (32.0-36.0); MEAN CORPUSCULAR VOLUME 94.2 fL (80.0-94.0); MEAN PLATELET VOLUME 11.3 fL (7.4-11.4); MONOCYTES # (AUTO) 0.7 10^3/uL (0.0-1.0); MONOCYTES % (AUTO) 11.8 %; NEUTROPHILS # (AUTO) 3.9 10^3/uL (1.5-6.6); NEUTROPHILS % (AUTO) 62.2 %; PLT - PLATELET COUNT 178 10^3/uL (130-450); RED BLOOD COUNT 4.29 10^6/uL (4.70-6.10); RED CELL DISTRIBUTION WIDTH 12.8 % (12.0-15.0); WHITE BLOOD COUNT 6.2 x10^3/uL (4.8-10.8)
[2020-02-17 05:35] LABS: CALCIUM 8.3 mg/dL (8.5-10.3); CREATININE 0.7 mg/dL (0.6-1.2); CRP - C-REACTIVE PROTEIN 6.7 mg/dL (0-1.0); MAGNESIUM 1.9 mg/dL (1.7-2.8); PHOSPHORUS 2.9 mg/dL (2.5-4.6)
[2020-02-17] MEDS ORDERED: VANCOMYCIN INJ 0.75 GM in SODIUM CHLORIDE 0.9% 250 ML IV SCH ×4 (08:00)
[2020-02-17] MEDS: SACCHAROMYCES BOULARDII 250 MG CAPSULE PO SCH ×2 (10:05→16:56)
[2020-02-17] MEDS: NEUTRA-PHOS 250 MG TABLET PO SCH ×3 (10:05→16:56)
[2020-02-17] MEDS: MULTIVITAMIN W/MINERALS TABLET PO SCH (10:05)
[2020-02-17] MEDS: ENOXAPARIN 40 MG/0.4 ML SYRINGE SUBQ SCH (10:06)
--- NOTE | 2020-02-17 12:14 | PROVIDER PROGRESS NOTE ---
Assessment/Plan - Problem List (1) Bacteremia Assessment/Plan: 02/16,Patient's blood culture show Staph aureus positive in 2 tubal blood culture. Sensitivity study show on today it is MSSA sensitivity. We will stop vancomycin and switch to nafcillin. According to up-to-date, start second blood culture on today After 48 hrs treated. pt's blood culture in both tube show Staph aureus which sensitivity study is still pending. it is likely from his bilateral lower extremities infection. lower extremities infection smell odor. Add vancomycin, plus change antibiotics from Rocephin to the cefepime for coverage of possible Pseudomonas infection In his lower extremities infection. will order ECHO to r/o Endo. (2) Community acquired pneumonia Conclusion/Plan: 02/16, patient has no respiratory distress, patient has 96% sats on room air, no cough, will continue antibiotics Now patient has vancomycin and cefepime antibiotics, so all this antibiotics will cover for possible pneumonia. Patient has 95-98 sats on the room air, patient has no cough or other respiratory symptoms at this point. (3) Failure to thrive Conclusion/Plan: 02/16, patient ate 75% of meal today, improved. Patient was report he stopped eating for 2 or 3 days, this could be multiple factors combination, the reasons include patient has severe infection, plus patient has advanced dementia. We will continue dysphagia diet, precaution of aspiration, turn And reposition of the patient To prevent of pressure ulcer. (4) Dehydration Conclusion/Plan: improved, will continue intravenous IV fluid, precaution of fluid over-loaded. 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 he denies pain. Continue antibiotics, continue to rise lower extremity to help r eturn venous blood. Patient is likely has chronic venous stenosis dermatitis for both lower extremi ty, But was not obvious edematous. Both foot and lower extremities are warm today and odor smell, it is likely some infection was on. added Xray to R/O lower extremity to the level of osteomyelitis infection, on ultrasound to rule out DVT of clots. Consult wound care to have the patient skin care - Current Meds Current Meds: Current Medications Generic Name Dose Route Start Last Admin Trade Name Freq PRN Reason Stop Dose Admin Enoxaparin Sodium 40 mg 02/15/20 09:00 02/17/20 10:06 Lovenox SUBQ 40 mg DAILY [facility] Administration Potassium Chloride/Dextrose/Sod Cl 1,000 mls @ 75 mls/hr 02/15/20 14:58 04:59 IV 75 mls/hr .[id number] [facility] Administration Multivitamins/Minerals 1 tab 02/15/20 16:00 02/17/20 10:05 Theragran M PO 1 tab DAILYWM [facility] Administration Saccharomyces Boulardii 250 mg 02/15/20 17:00 02/17/20 10:05 Florastor PO 250 mg BIDWM [facility] Administration Sodium Chloride 10 ml 02/14/20 16:06 02/16/20 14:21 Normal Saline Flush 0.9% IVP 10 ml PRN PRN Administration NEEDED PER PROVIDER ORDERS Sodium Chloride 10 ml 02/14/20 17:00 02/17/20 10:06 Normal Saline Flush 0.9% IVP Not Given 0100,0900,1700 [facility] Sodium Phosphate 250 mg 02/15/20 12:00 02/17/20 10:05 K-Phos Neutral PO 250 mg TIDWM [facility] Administration - Lab Result Fish Bone Diagrams: 02/17/20 04:55 02/17/20 04:55 - Additional Planning My Orders: My Active Orders 02/17/20 COVID-19 REFERENCE TEST Routine 02/17/20 01:20 Blood Culture [CULTURE, BLOOD #1] [] Urgent Blood Culture [CULTURE, BLOOD #2] [] Urgent 02/17/20 13:00 Nafcillin 2 gm Sodium Chloride 0.9% Minibag [Normal Saline 0.9% Minibag] 100 ml IV Q4HR 02/18/20 05:00 CRP - C-REACTIVE PROTEIN [CHEM] DAILYLAB 02/19/20 05:00 CRP - C-REACTIVE PROTEIN [CHEM] DAILYLAB Subjective - Subjective Nursing Reports: No Complaints Objective Vital Signs: Vital Signs - 24 hr 02/16/20 02/16/20 02/17/20 15:46 23:40 08:00 Temperature 37.0 C 36.5 C 36.5 C Heart Rate [ 89 86 87 Brachial] Respiratory 18 18 18 Rate Blood Pressure 153/86 H 146/68 H [Left Brachial artery] Blood Pressure 140/60 H [Right Brachial artery] O2 Saturation 95 98 96 Oxygen O2 Source Room air I&O (Last 24 Hrs): Intake and Output Totals x24h 02/15/20 02/16/20 02/17/20 23:59 23:59 23:59 Intake Total 3011.935 1594.24 570 Output Total 1000 1055 850 Balance 2011.935 539.24 -280 General: Alert, No acute distress HEENT: Atraumatic Neck: Supple Lymphatic: no adenopathy Neuro: Alert, Disoriented, Non Focal Cardiovascular: Regular rate, Normal S1, Normal S2 Respiratory: Chest non-tender, No respiratory distress Abdomen: Normal bowel sounds, Soft, No tenderness Extremities: Normal pulses - Results Results: Laboratory Results WBC 6.2 x10^3/uL (4.8-10.8) 02/17/20 04:55 RBC 4.29 10^6/uL (4.70-6.10) L 02/17/20 04:55 Hgb 13.0 g/dL (14.0-18.0) L 02/17/20 04:55 Hct 40.4 % (42.0-52.0) L 02/17/20 04:55 MCV 94.2 fL (80.0-94.0) H 02/17/20 04:55 MCH 30.3 pg (27.0-31.0) 02/17/20 04:55 MCHC 32.2 g/dL (32.0-36.0) 02/17/20 04:55 RDW 12.8 % (12.0-15.0) 02/17/20 04:55 Plt Count 178 10^3/uL (130-450) 02/17/20 04:55 MPV 11.3 fL (7.4-11.4) 02/17/20 04:55 Neut # (Auto) 3.9 10^3/uL (1.5-6.6) 02/17/20 04:55 Lymph # (Auto) 1.1 10^3/uL (1.5-3.5) L 02/17/20 04:55 [place] # (Auto) 0.7 10^3/uL (0.0-1.0) 02/17/20 04:55 Eos # (Auto) 0.4 10^3/uL (0.0-0.7) 02/17/20 04:55 Baso # (Auto) 0.1 10^3/uL (0.0-0.1) 02/17/20 04:55 Absolute Nucleated RBC 0.00 x10^3/uL 02/17/20 04:55 Nucleated RBC % 0.0 /100WBC 02/17/20 04:55 PT 14.1 secs (9.9-12.6) H 02/14/20 13:00 INR 1.3 (0.8-1.2) H 02/14/20 13:00 Sodium 142 mmol/L (135-145) 02/17/20 04:55 Potassium 3.8 mmol/L (3.5-5.0) 02/17/20 04:55 Chloride 102 mmol/L (101-111) 02/17/20 04:55 Carbon Dioxide 26 mmol/L (21-32) 02/17/20 04:55 Anion Gap 14.0 (6-13) H 02/17/20 04:55 BUN 8 mg/dL (6-20) 02/17/20 04:55 Creatinine 0.7 mg/dL (0.6-1.2) 02/17/20 04:55 Estimated GFR (MDRD) 107 (>89) 02/17/20 04:55 Glucose 105 mg/dL (70-100) H 02/17/20 04:55 Lactic Acid 1.5 mmol/L (0.5-2.2) 02/14/20 13:00 Calcium 8.3 mg/dL (8.5-10.3) L 02/17/20 04:55 Phosphorus 2.9 mg/dL (2.5-4.6) 02/17/20 04:55 Magnesium 1.9 mg/dL (1.7-2.8) 02/17/20 04:55 Total Bilirubin 1.7 mg/dL (0.2-1.0) H 02/14/20 13:00 AST 24 IU/L (10-42) 02/14/20 13:00 ALT 19 IU/L (10-60) 02/14/20 13:00 Alkaline Phosphatase 41 IU/L (42-121) L 02/14/20 13:00 Total Creatine Kinase 90 IU/L (22-269) 02/14/20 13:00 CK-MB (CK-2) 3.8 ng/mL (0.6-6.3) 02/14/20 13:00 Troponin I High Sens 13.7 ng/L (2.3-19.7) 02/14/20 21:47 C-Reactive Protein 6.7 mg/dL (0-1.0) H 02/17/20 04:55 Total Protein 7.2 g/dL (6.7-8.2) 02/14/20 13:00 Albumin 3.5 g/dL (3.2-5.5) 02/14/20 13:00 Globulin 3.7 g/dL (2.1-4.2) 02/14/20 13:00 Albumin/Globulin Ratio 0.9 (1.0-2.2) L 02/14/20 13:00 Lipase 35 U/L (22-51) 02/14/20 13:00 TSH 1.32 uIU/mL (0.34-5.60) 02/14/20 13:00 Urine Color DARK YELLOW 02/14/20 12:47 Urine Clarity CLEAR (CLEAR) 02/14/20 12:47 Urine pH 5.5 PH (5.0-7.5) 02/14/20 12:47 Ur Specific [place] >=1.030 (1.002-1.030) H 02/14/20 12:47 Urine Protein TRACE mg/dL (NEGATIVE) 02/14/20 12:47 Urine Glucose (UA) NEGATIVE mg/dL (NEGATIVE) 02/14/20 12:47 Urine Ketones 40 mg/dL (NEGATIVE) H 02/14/20 12:47 Urine Occult Blood MODERATE (NEGATIVE) H 02/14/20 12:47 Urine Nitrite NEGATIVE (NEGATIVE) 02/14/20 12:47 Urine Bilirubin NEGATIVE (NEGATIVE) 02/14/20 12:47 Urine Urobilinogen 0.2 (NORMAL) E.U./dL (NORMAL) 02/14/20 12:47 Ur Leukocyte Esterase NEGATIVE (NEGATIVE) 02/14/20 12:47 Urine RBC 0-5 /HPF (0-5) 02/14/20 12:47 Urine WBC 0-3 /HPF (0-3) 02/14/20 12:47 Ur Squamous Epith Cells NONE SEEN (<= Few) 02/14/20 12:47 Urine Bacteria Few /HPF (None Seen) 02/14/20 12:47 Ur Microscopic Review INDICATED 02/14/20 12:47 Urine Culture Comments NOT INDICATED 02/14/20 12:47 Last Dose Date 02/16/20 02/17/20 01:30 Last Dose Time 1400 02/17/20 01:30 Vancomycin Trough 22.2 ug/mL (10.0-20.0) H 02/17/20 01:30 Salicylates < 6.0 mg/dL 02/14/20 13:00 Acetaminophen < 10 ug/mL (10-30) L 02/14/20 13:00 Ethyl Alcohol < 5.0 mg/dL 02/14/20 13:00 ABX Reporting Has patient been on IV antibiotics over the past 48 hours?: Yes Current Medications - Current Medications Current Medications: Active Medications Acetaminophen (Tylenol) 650 mg PO Q4HR PRN PRN Reason: Pain or Fever > 38C (100.4F) Enoxaparin Sodium (Lovenox) 40 mg SUBQ DAILY [facility] Last Admin: 02/17/20 10:06 Dose: 40 mg Documented by: Potassium Chloride/Dextrose/Sod Cl () 1,000 mls @ 75 mls/hr IV .[id number] [facility] Last Admin: 02/17/20 04:59 Dose: 75 mls/hr Documented by: Nafcillin Sodium 2 gm/ Sodium (Chloride) 100 mls @ 100 mls/hr IV Q4HR [facility] Last Infusion: 02/17/20 14:20 Dose: Infused Documented by: Mineral Oil (Cavilon) 1 applic TOP PRN PRN PRN Reason: Skin Care Last Admin: 02/17/20 14:21 Dose: 1 applic Documented by: Multivitamins/Minerals (Theragran M) 1 tab PO DAILYWM [facility] Last Admin: 02/17/20 10:05 Dose: 1 tab Documented by: Saccharomyces Boulardii (Florastor) 250 mg PO BIDWM [facility] Last Admin: 02/17/20 10:05 Dose: 250 mg Documented by: Sodium Chloride (Normal Saline Flush 0.9%) 10 ml IVP PRN PRN PRN Reason: NEEDED PER PROVIDER ORDERS Last Admin: 02/16/20 14:21 Dose: 10 ml Documented by: Sodium Chloride (Normal Saline Flush 0.9%) 10 ml IVP 0100,0900,1700 [facility] Last Admin: 02/17/20 10:06 Dose: Not Given Documented by: Sodium Phosphate (K-Phos Neutral) 250 mg PO TIDWM [facility] Last Admin: 02/17/20 13:17 Dose: 250 mg Documented by: No Known Home Medications 02/14/20
[2020-02-17] MEDS: NAFCILLIN 2 GM in SODIUM CHLORIDE 0.9% MINIBAG 100 ML IV SCH ×3 (13:17→20:49)
[2020-02-18] MEDS: NAFCILLIN 2 GM in SODIUM CHLORIDE 0.9% MINIBAG 100 ML IV SCH ×6 (01:04→21:37)
[2020-02-18] MEDS: SODIUM CHLORIDE FLUSH 0.9% 10 ML SYRINGE IVP SCH ×3 (01:05→17:22)
[2020-02-18] MEDS: ACETAMINOPHEN 325 MG TABLET PO PRN (04:52)
[2020-02-18 05:13] LABS: BASOPHILS # (AUTO) 0.1 10^3/uL (0.0-0.1); EOSINOPHILS # (AUTO) 0.3 10^3/uL (0.0-0.7); EOSINOPHILS % (AUTO) 5.8 %; HGB - HEMOGLOBIN 14.5 g/dL (14.0-18.0); LYMPHOCYTES # (AUTO) 1.2 10^3/uL (1.5-3.5); LYMPHOCYTES % (AUTO) 19.5 %; MEAN CORPUSCULAR HGB CONC 33.3 g/dL (32.0-36.0); MEAN CORPUSCULAR VOLUME 93.1 fL (80.0-94.0); MEAN PLATELET VOLUME 10.7 fL (7.4-11.4); MONOCYTES # (AUTO) 0.7 10^3/uL (0.0-1.0); NEUTROPHILS # (AUTO) 3.6 10^3/uL (1.5-6.6); NEUTROPHILS % (AUTO) 60.8 %; PLT - PLATELET COUNT 193 10^3/uL (130-450); RED BLOOD COUNT 4.67 10^6/uL (4.70-6.10); RED CELL DISTRIBUTION WIDTH 12.9 % (12.0-15.0); WHITE BLOOD COUNT 5.9 x10^3/uL (4.8-10.8)
[2020-02-18 05:31] LABS: CRP - C-REACTIVE PROTEIN 3.7 mg/dL (0-1.0); MAGNESIUM 1.9 mg/dL (1.7-2.8); PHOSPHORUS 3.8 mg/dL (2.5-4.6)
--- NOTE | 2020-02-18 07:40 | PROVIDER PROGRESS NOTE ---
Subjective - Prog Note Date Prog Note Date: 02/18/20 - Subjective Subjective: Patient with no complaints today. Denies any pain. Current Medications - Current Medications Current Medications: Active Medications Acetaminophen (Tylenol) 650 mg PO Q4HR PRN PRN Reason: Pain or Fever > 38C (100.4F) Last Admin: 02/18/20 04:52 Dose: 650 mg Documented by: Docusate Sodium (Colace 250mg Capsule) 250 - 500 mg PO DAILY [facility] Last Admin: 02/18/20 08:22 Dose: Not Given Documented by: Enoxaparin Sodium (Lovenox) 40 mg SUBQ DAILY [facility] Last Admin: 02/18/20 08:23 Dose: 40 mg Documented by: Nafcillin Sodium 2 gm/ Sodium (Chloride) 100 mls @ 100 mls/hr IV Q4HR [facility] Last Infusion: 02/18/20 13:44 Dose: Infused Documented by: Lisinopril (Zestril) 10 mg PO DAILY [facility] Mineral Oil (Cavilon) 1 applic TOP PRN PRN PRN Reason: Skin Care Last Admin: 02/17/20 14:21 Dose: 1 applic Documented by: Multivitamins/Minerals (Theragran M) 1 tab PO DAILYWM [facility] Last Admin: 02/18/20 08:21 Dose: 1 tab Documented by: Polyethylene Glycol (Miralax) 17 gm PO DAILY [facility] Last Admin: 02/18/20 08:23 Dose: Not Given Documented by: Saccharomyces Boulardii (Florastor) 250 mg PO BIDWM [facility] Last Admin: 02/18/20 08:21 Dose: 250 mg Documented by: Sodium Chloride (Normal Saline Flush 0.9%) 10 ml IVP PRN PRN PRN Reason: NEEDED PER PROVIDER ORDERS Last Admin: 02/16/20 14:21 Dose: 10 ml Documented by: Sodium Chloride (Normal Saline Flush 0.9%) 10 ml IVP 0100,0900,1700 [facility] Last Admin: 02/18/20 08:24 Dose: 10 ml Documented by: Sodium Phosphate (K-Phos Neutral) 250 mg PO TIDWM [facility] Last Admin: 02/18/20 11:59 Dose: 250 mg Documented by: No Known Home Medications 02/14/20 Objective - Vital Signs/Intake & Output Reviewed Vital Signs: Yes Vital Signs: Vital Signs x48h Temp Pulse Resp BP Pulse Ox 02/17/20 23:45 36.7 C 92 18 136/69 H 97 Intake & Output: Intake & Output 02/15/20 02/16/20 02/17/20 02/18/20 23:59 23:59 23:59 23:59 Intake Total 3011.935 1594.24 2240 200 Output Total 1000 1055 1325 750 Balance 2010.935 539.24 915 -550 - Objective General Appearance: positive: No acute distress, Alert Eyes Bilateral: positive: Normal inspection ENT: positive: ENT inspection nml Neck: positive: Nml inspection Respiratory: positive: No respiratory distress. negative: Wheezes, Rales, Rhonchi Cardiovascular: positive: Regular rate & rhythm, No murmur. negative: Tachycardia, Bradycardia, Systolic murmur Abdomen: positive: Non-tender, No distention. negative: Tenderness Skin: positive: Warm, Dry, Other (Chronic venous stasis changes over the lower extremities. Trace edema. No significant erythema.) Extremities: positive: Pedal edema (Trace edema in lower extremities.) Neurologic/Psychiatric: positive: Disoriented to time, Other. negative: Disoriented to person - Lab Results Fish Bones: 02/18/20 04:15 02/17/20 04:55 Other Labs: Lab Results x24hrs 02/18/20 02/18/20 02/17/20 Range/Units 04:15 04:15 14:18 WBC 5.9 (4.8-10.8) x10^3/uL RBC 4.67 L (4.70-6.10) 10^6/uL Hgb 14.5 (14.0-18.0) g/dL Hct 43.5 (42.0-52.0) % MCV 93.1 (80.0-94.0) fL MCH 31.0 (27.0-31.0) pg MCHC 33.3 (32.0-36.0) g/dL RDW 12.9 (12.0-15.0) % Plt Count 193 (130-450) 10^3/uL MPV 10.7 (7.4-11.4) fL Neut # (Auto) 3.6 (1.5-6.6) 10^3/uL Lymph # (Auto) 1.2 L (1.5-3.5) 10^3/uL [place] # (Auto) 0.7 (0.0-1.0) 10^3/uL Eos # (Auto) 0.3 (0.0-0.7) 10^3/uL Baso # (Auto) 0.1 (0.0-0.1) 10^3/uL Absolute Nucleated RBC 0.00 x10^3/uL Nucleated RBC % 0.0 /100WBC Phosphorus 3.8 (2.5-4.6) mg/dL Magnesium 1.9 (1.7-2.8) mg/dL C-Reactive Protein 3.7 H (0-1.0) mg/dL Coronavirus (PCR) NEGATIVE ABX Reporting Has patient been on IV antibiotics over the past 48 hours?: Yes Assessment/Plan - Problem List (1) Staphylococcus aureus bacteremia Impression: Blood cultures on admission grew staph aureus in all 4 bottles that is pansensitive. He has been transitioned to nafcillin. Repeat blood cultures from the have been negative to date. The etiology the bacteremia is not clear at this time. There was concern for possible cellulitis on admission but there was not significant erythema in his lower extremities and suspect this was likely chronic venous stasis changes. He did have one documented fever the day after hospitalization but otherwise been afebrile. No leukocytosis. Echocardiogram was not suggestive of vegetation. He does not have any acute complaints such as back pain which would suggest discitis although he does have dementia and is a poor historian. His CRP is trending down. At this time, we will keep him on nafcillin IV with today being day 2 since negative cultures. Will await negative cultures for 40 hours before placing a PICC line. Will discuss with infectious disease regarding length of treatment. He will require at least 2 weeks of IV antibiotics. (2) Failure to thrive Impression: Improving. He has had increased appetite. Suspect his poor intake was se condary to his infection. Continue diet as tolerated. Qualifiers: Failure to thrive age range: in adult Qualified Code(s): R62.7 - Adult failure to thrive (3) Dementia Impression: Stable and at his baseline. Qualifiers: Dementia type: unspecified type Dementia behavioral disturbance: without behavioral disturbance Qualified Code(s): F03.90 - Unspecified dementia without behavioral disturbance (4) History of coronary artery disease Impression: No evidence of ACS during his hospitalization. Will discuss with family regarding resuming aspirin and statin as he has been off of these medications. 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 He was evaluated by wound care and appreciate their input. Continue dressing changes as per their recommendations. (6) Hypertension Impression: His blood pressures been elevated systolic in the 150s. We will start him on lisinopril 10 mg daily.
[2020-02-18] MEDS: SACCHAROMYCES BOULARDII 250 MG CAPSULE PO SCH ×2 (08:21→17:14)
[2020-02-18] MEDS: MULTIVITAMIN W/MINERALS TABLET PO SCH (08:21)
[2020-02-18] MEDS: NEUTRA-PHOS 250 MG TABLET PO SCH ×3 (08:21→17:14)
[2020-02-18] MEDS: DOCUSATE SODIUM 250 MG CAPSULE PO SCH (08:22)
[2020-02-18] MEDS: polyethylene glycoL 3350 17 GM PACKET PO SCH (08:23)
[2020-02-18] MEDS: ENOXAPARIN 40 MG/0.4 ML SYRINGE SUBQ SCH (08:23)
[2020-02-19] MEDS: NAFCILLIN 2 GM in SODIUM CHLORIDE 0.9% MINIBAG 100 ML IV SCH ×4 (00:30→10:00)
[2020-02-19] MEDS: SODIUM CHLORIDE FLUSH 0.9% 10 ML SYRINGE IVP SCH ×3 (00:31→16:51)
[2020-02-19] MEDS: polyethylene glycoL 3350 17 GM PACKET PO SCH (04:50)
[2020-02-19] MEDS: DOCUSATE SODIUM 250 MG CAPSULE PO SCH (04:50)
[2020-02-19] MEDS: NEUTRA-PHOS 250 MG TABLET PO SCH ×4 (08:07→16:51)
[2020-02-19] MEDS: SACCHAROMYCES BOULARDII 250 MG CAPSULE PO SCH ×3 (08:07→16:51)
[2020-02-19] MEDS: MULTIVITAMIN W/MINERALS TABLET PO SCH ×2 (08:07→08:43)
[2020-02-19] MEDS: lisinopriL 5 MG TABLET PO SCH ×2 (08:07→08:44)
[2020-02-19] MEDS: ENOXAPARIN 40 MG/0.4 ML SYRINGE SUBQ SCH ×2 (08:08→10:38)
[2020-02-19] MEDS: ACETAMINOPHEN 325 MG TABLET PO PRN (08:14)
[2020-02-19] MEDS ORDERED: ACETAMINOPHEN 1,000 MG/100 ML 100 ML IV ONE (11:13)
--- NOTE | 2020-02-19 12:17 | PROVIDER PROGRESS NOTE ---
Subjective - Prog Note Date Prog Note Date: 02/19/20 - Subjective Subjective: He keeps on telling the nurses that he feels like he is dying. He tells me that he will in 10 minutes. When asked if he has any pain, chest pain, dyspnea or any symptoms at all he just keeps on repeating that he will in 10 minutes. Current Medications - Current Medications Current Medications: Active Medications Acetaminophen (Tylenol) 650 mg PO Q4HR PRN PRN Reason: Pain or Fever > 38C (100.4F) Last Admin: 02/18/20 04:52 Dose: 650 mg Documented by: Docusate Sodium (Colace 250mg Capsule) 250 - 500 mg PO DAILY [facility] Last Admin: 02/19/20 04:50 Dose: Not Given Documented by: Enoxaparin Sodium (Lovenox) 40 mg SUBQ DAILY [facility] Last Admin: 02/19/20 10:38 Dose: Not Given Documented by: Nafcillin Sodium 2 gm/ Sodium (Chloride) 100 mls @ 100 mls/hr IV Q4HR [facility] Last Infusion: 02/19/20 11:48 Dose: Infused Documented by: Lisinopril (Zestril) 10 mg PO DAILY [facility] Last Admin: 02/19/20 08:44 Dose: Not Given Documented by: Mineral Oil (Cavilon) 1 applic TOP PRN PRN PRN Reason: Skin Care Last Admin: 02/17/20 14:21 Dose: 1 applic Documented by: Multivitamins/Minerals (Theragran M) 1 tab PO DAILYWM [facility] Last Admin: 02/19/20 08:43 Dose: Not Given Documented by: Polyethylene Glycol (Miralax) 17 gm PO DAILY [facility] Last Admin: 02/19/20 04:50 Dose: Not Given Documented by: Saccharomyces Boulardii (Florastor) 250 mg PO BIDWM [facility] Last Admin: 02/19/20 08:44 Dose: Not Given Documented by: Sodium Chloride (Normal Saline Flush 0.9%) 10 ml IVP PRN PRN PRN Reason: NEEDED PER PROVIDER ORDERS Last Admin: 02/16/20 14:21 Dose: 10 ml Documented by: Sodium Chloride (Normal Saline Flush 0.9%) 10 ml IVP 0100,0900,1700 [facility] Last Admin: 02/19/20 08:37 Dose: Not Given Documented by: Sodium Phosphate (K-Phos Neutral) 250 mg PO TIDWM [facility] Last Admin: 02/19/20 08:43 Dose: Not Given Documented by: No Known Home Medications 02/14/20 Objective - Vital Signs/Intake & Output Reviewed Vital Signs: Yes Vital Signs: Vital Signs x48h Temp Pulse Resp BP Pulse Ox 02/19/20 07:50 36.3 C L 89 18 155/81 H 95 Intake & Output: Intake & Output 02/16/20 02/17/20 02/18/20 02/19/20 23:59 23:59 23:59 23:59 Intake Total 1594.24 2240 2040.00 520 Output Total 1055 1325 1250 150 Balance 539.24 915 790.00 370 - Objective General Appearance: positive: No acute distress, Alert Neck: positive: Other (Kyphotic neck.) Respiratory: positive: Other (Diminished breath sounds bilaterally. Poor inspiratory effort.) Cardiovascular: positive: Regular rate & rhythm, No murmur. negative: Tachycardia, Bradycardia Skin: positive: Other (Dressing in place over the left lower extremity. Right extremity has chronic venous stasis changes. No significant erythea.) - Lab Results Fish Bones: 02/18/20 04:15 02/17/20 04:55 Other Labs: Lab Results x24hrs 02/19/20 Range/Units 05:30 C-Reactive Protein 1.6 H (0-1.0) mg/dL ABX Reporting Has patient been on IV antibiotics over the past 48 hours?: Yes Assessment/Plan - Problem List (1) Staphylococcus aureus bacteremia Impression: Source of the bacteremia is not clear. An echocardiogram was obtained which had no obvious vegetations. After spiking a fever on hospital day 2, he has been afebrile. His white count has also normalized. His CRP is trending down and also normal. 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 Repeat blood cultures have been negative for 48 hours now. I spoke with infectious disease at [facility] and they recommended 2 weeks of IV antibiotics with ceftezole and for presumed uncomplicated MSSA bacteremia. I have consulted anesthesia for PICC line placement. Patient need to be on IV cefazolin until March 02 to complete 14 days of therapy since the first set of negative blood cultures. He will be going to [facility] tomorrow. (2) Failure to thrive Impression: His oral intake has varied from 25% to 75% of meals completed. Poor oral intake at home mostly due to his ongoing infection. Nutrition has been consulted and appreciate recommendations Qualifiers: Failure to thrive age range: in adult Qualified Code(s): R62.7 - Adult failure to thrive (3) Dementia Impression: Remains at his baseline neurologic status. Qualifiers: Dementia type: unspecified type Dementia behavioral disturbance: without behavioral disturbance Qualified Code(s): F03.90 - Unspecified dementia without behavioral disturbance (4) History of coronary artery disease Impression: He has history of CABG but not on any medication at home. We discussed with family prior to discharge regarding resuming baby aspirin and statin. 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 Continue with dressing changes as per wound care. (6) Hypertension Impression: His blood pressures improved to systolic in the 130s on lisinopril which we will continue.
[2020-02-19] MEDS: ceFAZolin 2 GM in SODIUM CHLORIDE 0.9% MINIBAG 100 ML IV SCH ×2 (14:07→20:07)
--- NOTE | 2020-02-19 16:08 | XRAY Report ---
PROCEDURE: Chest for Line Placement INDICATIONS: New PICC line TECHNIQUE: One view of the chest was acquired. COMPARISON: Chest x-ray 02/14/2020 FINDINGS: Surgical changes and devices: Right PICC line is present with distal tip toward check dating over the region of the mid SVC. However, this is a significantly limited localization secondary to patient po sitioning and partial obscuration by skull shadow. Sternal wires are noted. Lungs and pleura: No pleural effusions or pneumothorax. Lungs are clear. Mediastinum: Mediastinal contours appear normal. Heart size is enlarged. Bones and chest wall: No suspicious bony lesions. Overlying soft tissues appear unremarkable. IMPRESSION: PICC line as above. Limited exam as above. Reviewed by: Christy Trejo MD on 02/19/2020 4:07 PM PDT Approved by: Christy Trejo MD on 02/19/2020 4:07 PM PDT Station ID: [id number]
[2020-02-20] MEDS: SODIUM CHLORIDE FLUSH 0.9% 10 ML SYRINGE IVP SCH ×2 (00:17→04:45)
[2020-02-20] MEDS: ACETAMINOPHEN 325 MG TABLET PO PRN (00:22)
[2020-02-20] MEDS: ceFAZolin 2 GM in SODIUM CHLORIDE 0.9% MINIBAG 100 ML IV SCH ×2 (04:44→12:32)
[2020-02-20] MEDS: polyethylene glycoL 3350 17 GM PACKET PO SCH (08:41)
[2020-02-20] MEDS: ENOXAPARIN 40 MG/0.4 ML SYRINGE SUBQ SCH (08:41)
[2020-02-20] MEDS: lisinopriL 5 MG TABLET PO SCH (08:42)
[2020-02-20] MEDS: NEUTRA-PHOS 250 MG TABLET PO SCH (08:46)
[2020-02-20] MEDS: SACCHAROMYCES BOULARDII 250 MG CAPSULE PO SCH (08:46)
[2020-02-20] MEDS: DOCUSATE SODIUM 250 MG CAPSULE PO SCH (08:46)
[2020-02-20] MEDS: MULTIVITAMIN W/MINERALS TABLET PO SCH (08:46)
--- NOTE | 2020-02-20 10:30 | Discharge Plan ---
"Discharge Plan for SNF / [facility] - Discharge Plan And Transition Orders Problem Reviewed?: Yes Disposition: 03 SNF DC/Xfer Condition: Stable Allergies and Adverse Reactions: Allergies Allergy/AdvReac Type Severity Reaction Status Date / Time hydrochlorothiazide Allergy Unknown Verified 09/21/19 15:03 influenza virus vacc Allergy Unknown Verified 09/21/19 15:03 trivalent, split [From Fluzone] Health Concerns: bacteremia, chronic venous stasis dermatitis of both lower extremities. Plan of Treatment: Per ID on recommendation, pt need two weeks IV of antibiotics. pt had PICC now, pt will be d/c with Ancef for total two weeks. Continue skin care and dress change per [facility] and nurse instructions for chronic venous stasis dermatitis of both lower extremities Care Goals: stabilization and improvement of pt's medical conditions. Assessment: discussed with pt's son Tom Anderson, he agreed the care plan. - SNF / [facility] Transition Orders Admit to (Facility): [facility] Under the care of (Name): Kar Tavera Discharge Diagnosis: bacteremia, failure to thrive, dementia, hx of CAD, chronic venous stasis dermatitis of both lower extremities, HTN Medicare Certification Statement: I certify that Post Hospital care home care is medically necessary on a continuing basis for any of the conditions for which she/he is receiving care during hospitalization. Notify PCP of admission and forward orders to primary provider for signature. Weight on admission and: Daily Call PCP immediately if weight increases by: 2 kg Other Notification Orders: Call PCP immediately if patient develops dyspnea, chest pain/tightness or edema. House Bowel Program: Yes Additional Bowel Program Orders: If no BM after 2 days, nurse may give M.O.M. 30ml PO PRN and/or ducolax Supp 1 SC and/or CATHY 250mg P.O., and/or senna 1-2 tabs PO. On day 3 nurse may give repeat above order until residents constipation is resolved. Annual Influenza Vaccine (between Apr 30 and November 27): Yes Two-step PPD per [facility] [id number] or approved exception documents: Yes Treatments & Other Orders: Per ID on recommendation, pt need two weeks IV of antibiotics. pt had PICC now, pt will be d/c with Ancef for total two weeks. Continue skin care and dress change per [facility] and nurse instructions for chronic venous stasis dermatitis of both lower extremities. aspiration precaution. Medication Orders: PLEASE REFER TO THE DISCHARGE MEDICATION LIST. Insulin Orders?: No - Medications New Prescriptions: Cefazolin Sodium in 0.9 % NaCl [Ancef 2 Grams/100Ml] 2 gm IV TID #36 bag Saccharomyces Boulardii [Florastor] 250 mg PO BID #24 capsule lisinopriL [Zestril] 10 mg PO DAILY #20 tablet - Diet Type: Geriatric Texture: Dysphagia mech Liquids: Thin May have monthly special meal: Yes - Therapies | Activity Rehabilitation Potential: Maximize functional status Activity: Activity as Tolerated"
--- NOTE | 2020-02-20 10:46 | ADVANCE CARE PLANNING NOTE ---
Advance Care Planning - Planning Encounter Date: 02/20/20 Time: 10:46 Purpose: advance care plan for pt Parties in Attendance: Patient, patient's son, Tom Anderson, and to me Decisional Capacity of the Patient: Patient has history of advanced dimension, he cannot make any decision for himself. His son make the decision for him - Diagnosis for Encounter (3) Dementia Qualifiers: Dementia type: unspecified type Dementia behavioral disturbance: without behavioral disturbance Qualified Code(s): F03.90 - Unspecified dementia without behavioral disturbance (4) Failure to thrive Qualifiers: Failure to thrive age range: in adult Qualified Code(s): R62.7 - Adult failure to thrive - Encounter Subjective/Patient's Story: Patient'son report patient had a fall 10 years ago, then he had another fall from the bed to the ground. Since that, patient was sitting the chair mostly on his time. Patient has no home medication right now. He report patient has Tylenol for his headache and diuretics for his lower extremity edema. Since lower extremity edema was improved, now patient has no home medication. Patient would like to keep on this way without additional medication. Patient's son reported his father's lower extremity edema and swelling is the best condition now as far he can see. Patient has bacterial uremia, patient will be discharged to the [facility] for intravenous of antibiotics for 2 weeks, patient blood pressure is a slightly high, patient will have Lisinopril. Patient's son is agreeing to the care plan. He would like to keep the same advance care with DNR/DNI. he would like his father come back to home cared by him and his family after the intravenous antibiotics and finished care in [facility] because he cannot afford send the patient to the correction. Objective/Medical Story: Patient has history advanced dementia, he cannot take care of himself at all. Patient also has history of CAD, but the patient has no home medication, Patient has Tylenol or diuretics before but now patient has no home medication. patient's son is now declining additional medication such as aspirin and statin for his father. Patient's son agree patient will be have intravenous antibiotics for his bacteremia in [facility] and will have blood pressure medicine lisinopril for him. Goals of Care: stabilization and improvement of his medical conditions Plan: Discharge to [facility] for 2 weeks intravenous antibiotics for his bacteremia, continue DNR/DNI for his CODE STATUS Code Status: Do Not Attempt Resuscitation Time spent on advance care plannin
--- NOTE | 2020-02-20 10:56 | DISCHARGE SUMMARY ---
Discharge Summary Admit Date: 02/14/20 Discharge Date: 02/20/20 Discharging Provider: Jose D Mao Primary Care Provider: Amarilis Zhao Condition at Discharge: Stable Discharge Disposition: SNF DC/Xfer Discharge Facility Name: [facility] - DIAGNOSES Admission Diagnoses: (1) Community acquired pneumonia (2) Failure to thrive (3) Dehydration (4) Dementia (5) History of coronary artery disease (6) Chronic venous stasis dermatitis of both lower extremities Discharge Diagnoses with Status of Each Condition: (1) Staphylococcus aureus bacteremia Patient has positive bacteremia with positive staph aureus. Per infectious disease at [facility] and they recommended 2 weeks of IV antibiotics with ceftezole for presumed uncomplicated MSSA bacteremia. Patient need to be on IV cefazolin until March 02 to complete 14 days of therapy since the first set of negative blood cultures. (2) Failure to thrive Improved. patient is recommended to have dysphagia diet. Patient needed feeding (3) Dementia Remains at his baseline neurologic status. (4) History of coronary artery disease He has history of CABG but not on any medication at home. Patient family chose no further medication for patient (5) Chronic venous stasis dermatitis of both lower extremities Stable. Continue with skin care (6) Hypertension Stable, patient prescribed lisinopril daily - HPI History of Present Illness: refer from Dr. Bernard's HPI on 02/14/2020 his is a 89-year-old male with a past medical history significant for dementia and what also appears to be hypertension, coronary artery disease who presents today from home after his son was concerned he had not been eating or drinking for the past 2 weeks. History is obtained from the ER physician and the EMR as patient has significant dementia unable to provide a history. I have attempted to contact the son via phone but unable to reach him to obtain further history. The son told the emergency department provider that the patient's appetite has been decreased for the past 2 weeks and he stopped eating 2 to 3 days ago. He has dementia at baseline and is oriented to self. He told the provider in the emergency room and he does not take any medications at this time. He also told the ER provider that he feels the patient would want to be a DNR. In the emergency department, he was found to be afebrile with temperature of 36.6 C. He was not tachycardic with a heart rate of 80. Blood pressure is 152/78. He was not tachypneic and saturating well on room air with an oxygen saturation of 97%. Chest x-ray was limited but did not reveal an obvious infiltrate. There was opacity in the left lung base but this was felt to be due to projection. CT of the abdomen and pelvis revealed no acute abnormalities. Labs revealed a white count of 14.5 with a left shift. Otherwise the rest of his labs were unremarkable. It was felt that there was concern for pneumonia and therefore medicine was consulted for admission. Was unable to discuss goals of care with the patient or the son. I will attempt to call him again to discuss. For the time being, the patient be made a DNR as per the discussion the ER provider had with the patient's son. - HOSPITAL COURSE Hospital Course: pt was admitted for refusing of eating for 2-3 days and failure to thrive. Later patient was found to have bacteremia with positive staph aureus in blood culture. Patient was treated with cefepime and vancomycin. patient infection is likely From his chronic lower extremity infection. patient WBC became normal, patient has no fever. Repeated blood culture show negative bacterremia.Echo show no vegetation. Sensitivity study show his MSSA. Consulted with ID in , recommended intravenous Ancef for 2 weeks. Patient had a PICC line done in the hospital. Patient was discharged to [facility] for intravenous antibiotics and skin care. - ALLERGIES Allergies/Adverse Reactions: Allergies Allergy/AdvReac Type Severity Reaction Status Date / Time hydrochlorothiazide Allergy Unknown Verified 09/21/19 15:03 influenza virus vacc Allergy Unknown Verified 09/21/19 15:03 trivalent, split [From Fluzone] - MEDICATIONS Home Medications: Ambulatory Orders Medication Instructions Recorded Confirmed Cefazolin Sodium in 0.9 % NaCl 2 gm IV TID #36 bag 02/20/20 [Ancef 2 Grams/100Ml] Saccharomyces Boulardii [Florastor] 250 mg PO BID #24 capsule 02/20/20 lisinopriL [Zestril] 10 mg PO DAILY #20 tablet 02/20/20 - PHYSICAL EXAM AT DISCHARGE General Appearance: positive: No acute distress, Alert. negative: Lethargic Eyes Bilateral: positive: Normal inspection, PERRL, No lid inflammation ENT: positive: ENT inspection nml, Pharynx nml, No signs of dehydration. negative: Purulent nasal drainage Neck: positive: Nml inspection, Thyroid nml, No JVD, Trachea midline. negative: Thyromegaly, Stiff neck, Tracheal deviation Respiratory: positive: Chest non-tender, No respiratory distress, Breath sounds nml. negative: Wheezes, Rales, Rhonchi Cardiovascular: positive: Regular rate & rhythm, No murmur, No gallop. neg ative: Tachycardia, Bradycardia, Systolic murmur, Diastolic murmur Peripheral Pulses: positive: 2+ Abdomen: positive: Non-tender, No organomegaly, Nml bowel sounds, No distention. negative: Tenderness, Guarding, Rebound Back: positive: Nml inspection. negative: CVA tenderness (R), CVA tenderness (L) Skin: positive: Warm, Dry. negative: Cyanosis, Diaphoresis, Pallor Extremities: positive: Non-tender, Other (bilateral lower extremities with erythema as his chronic condition, withou swelling, tenderness or warmth. ). negative: Calf tenderness, Denia's sign/cords Neurologic/Psychiatric: positive: Facial droop. negative: Weakness, Sensory los s, Slurred/abnml speech - LABS Result Diagrams: 02/18/20 04:15 02/17/20 04:55 - FOLLOW UP Follow Up: Per ID on [facility] recommendation, pt need two weeks IV of antibiotics. pt had PICC now, pt will be d/c with Ancef for total two weeks. Continue skin care and dress change per [facility] and nurse instructions for chronic venous stasis dermatitis of both lower extremities. aspiration precaution. - TIME SPENT Time Spent in Discharge (Minutes): 30
[2020-02-20 14:09] VITALS: BP 132/80
== END 2020-02-20 14:29 | DRG 872 ==
LOC: EDUNIT# → ED 12:31 → MS2 16:06
PROVIDERS: ADMIT Internal Medicine; ATTEND Nurse Practitioner Gerontology
PROC: 02HV33Z Insertion of Infusion Device into Superior Vena Cava, Percutaneous Approach (ICD-10-PCS; principal; 2020-02-19)
DX: J18.9 Pneumonia, unspecified organism (principal); R78.81 Bacteremia; A49.01 Methicillin susceptible Staphylococcus aureus infection, unspecified site; I87.2 Venous insufficiency (chronic) (peripheral); R10.817 Generalized abdominal tenderness; R62.7 Adult failure to thrive; Z68.21 Body mass index [BMI] 21.0-21.9, adult; E86.0 Dehydration; I73.9 Peripheral vascular disease, unspecified; J44.9 Chronic obstructive pulmonary disease, unspecified; F03.90 Unspecified dementia, unspecified severity, without behavioral disturbance, psychotic disturbance, mood disturbance, and anxiety; I10 Essential (primary) hypertension; I25.10 Atherosclerotic heart disease of native coronary artery without angina pectoris; E78.00 Pure hypercholesterolemia, unspecified; H54.7 Unspecified visual loss; Z66 Do not resuscitate; Z79.899 Other long term (current) drug therapy; Z95.1 Presence of aortocoronary bypass graft; I25.2 Old myocardial infarction; Z20.828 Contact with and (suspected) exposure to other viral communicable diseases
CPT/HCPCS: 36415; 70450; 71045; 73630; 74177; 80048; 80053; 80202; 81001; 82550; 82553; 83605; 83690; 83735; 84100; 84443; 84484; 85025; 85610; 86140; 87040; 87181; 93005; 93306; 93970; 96374; 99285; A6250; A9270; C1751; J0131; J1650; J3370; Q9967; U0004; 80307; 80320; 80329; 81003; 81599; 87086

== ENCOUNTER 2020-02-20 14:28 | Outpatient (CLI) | payer MEDICARE, OTHER | END 2020-02-20 14:29 | LOC: EMS 14:28 | PROVIDERS: ATTEND Surgery | DX: J18.9 Pneumonia, unspecified organism (principal); E86.0 Dehydration; R63.0 Anorexia; F03.90 Unspecified dementia, unspecified severity, without behavioral disturbance, psychotic disturbance, mood disturbance, and anxiety; Z74.01 Bed confinement status | CPT/HCPCS: A0425; A0428 ==

== ENCOUNTER 2020-02-21 06:08 | Outpatient (CLI) | payer MEDICARE, OTHER | END 2020-02-21 06:09 | disposition critical access hospital (66) | LOC: EMS 06:08 | PROVIDERS: ATTEND Surgery | DX: M54.2 Cervicalgia (principal); W19.XXXA Unspecified fall, initial encounter; Y92.122 Bedroom in nursing home as the place of occurrence of the external cause ==

== ENCOUNTER 2020-02-21 06:54 | Emergency (ER) | payer MEDICARE, OTHER ==
[2020-02-21 07:06] VITALS: BP 152/67
--- NOTE | 2020-02-21 07:23 | ED Physician Documentation ---
PD HPI HEAD INJURY - Stated complaint Stated Complaint: FALL - Chief complaint Chief Complaint: Trauma Hd/Nk - History obtained from History obtained from: EMS - Additional information Additional information: This is an 89-year-old gentleman who presents from a local shelter for a fall. He was admitted and discharged yesterday for MSSA bacteremia thought due to lower extremity cellulitis. He is on IV antibiotics via right-sided PICC line. Reportedly was found down next to his bed complaining of neck pain today. It sounds like it was an unwitnessed fall. On my evaluation he is very jonn nted laying in bed asking me to take the cervical spine collar off but denying any pain. He is too demented to give a valuable history. He is cooperative though. But only intermittently following commands. Review of Systems Unable to obtain: Dementia PD PAST MEDICAL HISTORY - Past Medical History Cardiovascular: Hypertension, High cholesterol, Coronary artery disease, Peripheral Vascular Disease, [place] Respiratory: COPD Neuro: Dementia, Other Endocrine/Autoimmune: None GI: None : None HEENT: Chronic vision loss Psych: None Musculoskeletal: None Derm: Eczema, Other - Past Surgical History Past Surgical History: Yes Cardiovascular: CABG - Present Medications Home Medications: Ambulatory Orders Medication Instructions Recorded Confirmed Cefazolin Sodium in 0.9 % NaCl 2 gm IV TID #36 bag 02/20/20 [Ancef 2 Grams/100Ml] Saccharomyces Boulardii [Florastor] 250 mg PO BID #24 capsule 02/20/20 lisinopriL [Zestril] 10 mg PO DAILY #20 tablet 02/20/20 - Allergies Allergies/Adverse Reactions: Allergies Allergy/AdvReac Type Severity Reaction Status Date / Time hydrochlorothiazide Allergy Unknown Verified 09/21/19 15:03 influenza virus vacc Allergy Unknown Verified 09/21/19 15:03 trivalent, split [From Fluzone] - Social History Does the pt smoke?: Yes Smoking Status: Former smoker Does the pt drink ETOH?: Yes PD ED PE NORMAL - Vitals Vital signs reviewed: Yes - General General: Other (He is alert, he follows simple commands. He does not state his name when prompted. He does say certain useful things such as "take it off," and points to the cervical collar) - HEENT HEENT: PERRL, EOMI - Neck Neck: No bony TTP - Cardiac Cardiac: RRR, No murmur - Respiratory Respiratory: No respiratory distress, Clear bilaterally - Abdomen Abdomen: Non tender - Extremities Extremities: Other (I am able to range all major joints in all 4 extremities without apparent pain. He has a bandage skin tear on the right elbow. The lower legs are bandaged.) - Neuro Eye Opening: Spontaneous Motor: Obeys Commands Verbal: Confused GCS Score: 14 Results - Vitals Vitals: Vital Signs - 24 hr 02/21/20 07:03 Temperature 35.9 C L Heart Rate 68 Respiratory 12 Rate Blood Pressure 152/67 H O2 Saturation 96 Oxygen O2 Source Room air - Rads (name of study) CT head and Cspine Radiology: EMP read contemporaneously (No acute abnormalities; atrophy) PD MEDICAL DECISION MAKING - ED course ED course: 89-year-old gentleman presents after a fall at the shelter. No clear injuries on exam but too demented to give a useful history. Departure - Departure Disposition: 01 Home, Self Care Clinical Impression: Injury of head and neck Qualifiers: Encounter type: initial encounter Qualified Code(s): S09.90XA - Unspecified injury of head, initial encounter; S19.9XXA - Unspecified injury of neck, initial encounter Condition: Good Record reviewed to determine appropriate education?: Yes Instructions: ED Head Injury Closed, ED Sprain Strain Neck Comments: CT of the head and cervical spine were without acute abnormality. He should have fall precautions at the shelter. Return for new or worsening injury. There is some concern for Normal pressure hydrocephalus on the head CT and this should be discussed with his physician.
--- NOTE | 2020-02-21 08:22 | CT Report ---
PROCEDURE: CERVICAL SPINE WO INDICATIONS: neck injury TECHNIQUE: Noncontrast 3 mm thick sections acquired from the skull base to the T4 level. Sagittal and coronal r eformats were then constructed. For radiation dose reduction, the following was used: automated exp osure control, adjustment of mA and/or kV according to patient size. COMPARISON: CT head 02/14/2020, 02/21/2020. FINDINGS: Image quality: Excellent. Bones: No fractures or dislocations. Visualized superior ribs are intact. Multilevel degenerative changes are present. Soft tissues: Prevertebral soft tissues are normal in thickness. No paravertebral hematomas. No ap ical pneumothoraces. Partially visualized mild left pleural effusion. IMPRESSION: 1. Multilevel degenerative changes of visualized fracture. 2. Partially visualized mild left pleural effusion. Reviewed by: Christy Trejo MD on 02/21/2020 8:21 AM PDT Approved by: Christy Trejo MD on 02/21/2020 8:21 AM PDT Station ID: [id number]
--- NOTE | 2020-02-21 08:30 | CT Report ---
PROCEDURE: HEAD WO INDICATIONS: head injury TECHNIQUE: Noncontrast 4.5 mm thick angled axial sections acquired from the foramen magnum to the vertex. For r adiation dose reduction, the following was used: automated exposure control, adjustment of mA and/or kV according to patient size. COMPARISON: CT head 02/14/2020 FINDINGS: Image quality: Excellent. The cortical sulci demonstrate atrophy, consistent for patient's stated age. Ventricles are prominen t in relation to gyral and sulcal atrophy, unchanged. There are areas of hypodensity in the periventr icular and subcortical white matter. There is no acute intra or extra-axial fluid collection. No ac [place] hemorrhage, mass lesion or midline shift. Brainstem is unremarkable. Globes are symmetrical. Si nuses are aerated. Osseous structures are intact. IMPRESSION: 1. No acute intracranial process. 2. Moderate atrophy and chronic microvascular ischemic changes. 3. Prominent ventricular system in relation to gyral and sulcal atrophy. This could represent a centr al atrophy pattern. However, other etiologies such as normal pressure hydrocephalus cannot be exclude d and further recommendation is recommended if clinically appropriate. Reviewed by: Christy Trejo MD on 02/21/2020 8:29 AM PDT Approved by: Christy Trejo MD on 02/21/2020 8:29 AM PDT Station ID: [id number]
== END 2020-02-21 12:28 | disposition home or self-care (01) ==
LOC: EDUNIT# → ED 06:54
DX: S09.90XA Unspecified injury of head, initial encounter (principal); S19.9XXA Unspecified injury of neck, initial encounter; S51.011A Laceration without foreign body of right elbow, initial encounter; W18.30XA Fall on same level, unspecified, initial encounter; Y92.122 Bedroom in nursing home as the place of occurrence of the external cause; F03.90 Unspecified dementia, unspecified severity, without behavioral disturbance, psychotic disturbance, mood disturbance, and anxiety; M50.30 Other cervical disc degeneration, unspecified cervical region; I10 Essential (primary) hypertension; Z87.891 Personal history of nicotine dependence
CPT/HCPCS: 70450; 72125; 99281; 99284

== ENCOUNTER 2020-02-21 12:28 | Outpatient (CLI) | payer MEDICARE, OTHER | END 2020-02-21 12:29 | LOC: EMS 12:28 | PROVIDERS: ATTEND Surgery | DX: M54.2 Cervicalgia (principal); R51 Headache; W06.XXXA Fall from bed, initial encounter; Y92.122 Bedroom in nursing home as the place of occurrence of the external cause | CPT/HCPCS: A0425; A0428; A0429 ==

== ENCOUNTER 2020-02-23 12:25 | Emergency (ER) | payer MEDICARE, OTHER ==
--- NOTE | 2020-02-23 12:38 | ED Physician Documentation ---
History of Present Illness - Stated complaint Stated Complaint: IV REPLACMENT - History obtained from History obtained from: EMS - Additonal information Additional information: 89-year-old gentleman with recent admission for MSSA bacteremia. He is being maintained on long-term IV cefazolin, he pulled out his IV today. No useful history is available from the patient due to his profound dementia. Review of Systems Unable to obtain: Dementia PD PAST MEDICAL HISTORY - Past Medical History Cardiovascular: Hypertension, High cholesterol, Coronary artery disease, Peripheral Vascular Disease, [place] Respiratory: COPD Neuro: Dementia, Other Endocrine/Autoimmune: None GI: None : None HEENT: Chronic vision loss Psych: None Musculoskeletal: None Derm: Eczema, Other - Past Surgical History Past Surgical History: Yes Cardiovascular: CABG - Present Medications Home Medications: Ambulatory Orders Medication Instructions Recorded Confirmed Cefazolin Sodium in 0.9 % NaCl 2 gm IV TID #36 bag 02/20/20 [Ancef 2 Grams/100Ml] Saccharomyces Boulardii [Florastor] 250 mg PO BID #24 capsule 02/20/20 lisinopriL [Zestril] 10 mg PO DAILY #20 tablet 02/20/20 - Allergies Allergies/Adverse Reactions: Allergies Allergy/AdvReac Type Severity Reaction Status Date / Time hydrochlorothiazide Allergy Unknown Verified 02/23/20 12:47 influenza virus vacc Allergy Unknown Verified 02/23/20 12:47 trivalent, split [From Fluzone] - Social History Does the pt smoke?: Yes Smoking Status: Former smoker Does the pt drink ETOH?: Yes PD ED PE NORMAL - Vitals Vital signs reviewed: Yes - General General: No acute distress, Other (v demented) - Neuro Eye Opening: Spontaneous Motor: Localizes to Pain Verbal: Confused GCS Score: 13 Results - Vitals Vitals: Vital Signs - 24 hr 02/23/20 02/23/20 12:25 15:00 Temperature 35.9 C L Heart Rate 87 91 Respiratory 14 21 Rate Blood Pressure 141/62 H 119/61 O2 Saturation 99 96 Oxygen O2 Source Room air PD MEDICAL DECISION MAKING - ED course ED course: SECURITY COMPLIANCE SPECIALIST placed the PICC line. Initial x-ray showed it kind of looped back on itself and she pulled it back 5 cm with better placement on x-ray. Departure - Departure Disposition: 01 Home, Self Care Clinical Impression: Bacteremia PICC line infection Qualifiers: Encounter type: initial encounter Qualified Code(s): T80.219A - Unspecified infection due to central venous catheter, initial encounter Condition: Good Record reviewed to determine appropriate education?: Yes Instructions: ED PICC Line Care Comments: We replaced his PICC line today, he did not receive any antibiotics in the emergency dept, please restart them on the usual schedule. Return as needed.
--- NOTE | 2020-02-23 15:09 | XRAY Report ---
PROCEDURE: Chest for Line Placement INDICATIONS: PICC placement TECHNIQUE: One view of the chest was acquired. COMPARISON: 02/19/2020 FINDINGS: Surgical changes and devices: Left-sided PICC line is seen and appears to be folded in the lower SVC with the proximal tip seen oriented superiorly in upper SVC. Median sternotomy wires are seen. Surgic al clips also noted. Lungs and pleura: Blunting of left costophrenic angle is seen concerning for left pleural effusion. N o definite focal infiltrate. No gross pneumothorax. Mediastinum: Mediastinal contours appear normal. Heart size is enlarged. Bones and chest wall: No suspicious bony lesions. Overlying soft tissues appear unremarkable. IMPRESSION: Left-sided PICC line appears to be coiled/folded in lower SVC with tip of the PICC line oriented supe riorly within upper SVC. Suggestion of left pleural effusion. No definite focal infiltrate or gross p neumothorax. Reviewed by: Gagan Hayden MD on 02/23/2020 3:08 PM PDT Approved by: Gagan Hayden MD on 02/23/2020 3:08 PM PDT Station ID: [id number]
--- NOTE | 2020-02-23 15:37 | XRAY Report ---
PROCEDURE: Chest for Line Placement INDICATIONS: s/p pulling back picc TECHNIQUE: One view of the chest was acquired. COMPARISON: Earlier study from the same date FINDINGS: Surgical changes and devices: There is a minimal pullback of the left-sided PICC line, the tip is now in lower SVC and is in satisfactory position. Lungs and pleura: Trace left pleural effusion is again seen. No definite focal infiltrate. No gross p neumothorax. Mediastinum: Mediastinal contours appear normal. Heart size is enlarged. Bones and chest wall: No suspicious bony lesions. Overlying soft tissues appear unremarkable. Old fracture of left proximal humeral shaft is seen. IMPRESSION: Left-sided PICC line is now in lower SVC and is in satisfactory position. Small left pleural effusion . No definite focal infiltrate or gross pneumothorax. Reviewed by: Gagan Hayden MD on 02/23/2020 3:36 PM PDT Approved by: Gagan Hayden MD on 02/23/2020 3:36 PM PDT Station ID: [id number]
--- NOTE | 2020-02-23 15:41 | ANESTHESIA PROCEDURE NOTE ---
Anesth Central Line Template - Central Line Central Line Preparation: Unable to obtain consent Central line type: Other (PICC line left brachial joselito) Central line catheter tip site resides: Superior vena cava (SVC) Central line aftercare: Secured, No complications, Bundle checklist complete, Pt tolerated well (trimmed at 47cm, 5cm left exposed. Secured with statlock and tegederm)
[2020-02-23 17:09] VITALS: BP 148/58
== END 2020-02-23 17:11 | disposition home or self-care (01) ==
LOC: EDUNIT# → ED 12:25
DX: T80.219A Unspecified infection due to central venous catheter, initial encounter (principal); Y84.8 Other medical procedures as the cause of abnormal reaction of the patient, or of later complication, without mention of misadventure at the time of the procedure; R78.81 Bacteremia; F03.90 Unspecified dementia, unspecified severity, without behavioral disturbance, psychotic disturbance, mood disturbance, and anxiety; I10 Essential (primary) hypertension; Z87.891 Personal history of nicotine dependence
CPT/HCPCS: 36569; 71045; 99281; 99283; C1751

== ENCOUNTER 2020-02-23 17:20 | Outpatient (CLI) | payer MEDICARE, OTHER | END 2020-02-23 17:21 | disposition home or self-care (01) | LOC: EMS 17:20 | PROVIDERS: ATTEND Surgery | DX: F03.90 Unspecified dementia, unspecified severity, without behavioral disturbance, psychotic disturbance, mood disturbance, and anxiety (principal) | CPT/HCPCS: A0425; A0428 ==

== ENCOUNTER 2020-02-28 05:30 | Outpatient (CLI) | payer MEDICARE, OTHER ==
[2020-02-28 13:35] LABS: BASOPHILS # (AUTO) 0.1 10^3/uL (0.0-0.1); BASOPHILS % (AUTO) 1.1 %; EOSINOPHILS # (AUTO) 0.1 10^3/uL (0.0-0.7); HGB - HEMOGLOBIN 11.6 g/dL (14.0-18.0); LYMPHOCYTES # (AUTO) 1.3 10^3/uL (1.5-3.5); LYMPHOCYTES % (AUTO) 13.1 %; MEAN CORPUSCULAR HEMOGLOBIN 30.1 pg (27.0-31.0); MEAN CORPUSCULAR HGB CONC 31.4 g/dL (32.0-36.0); MEAN CORPUSCULAR VOLUME 95.6 fL (80.0-94.0); MEAN PLATELET VOLUME 12.2 fL (7.4-11.4); MONOCYTES # (AUTO) 0.5 10^3/uL (0.0-1.0); MONOCYTES % (AUTO) 5.1 %; NEUTROPHILS # (AUTO) 7.9 10^3/uL (1.5-6.6); NEUTROPHILS % (AUTO) 78.1 %; PLT - PLATELET COUNT 297 10^3/uL (130-450); RED BLOOD COUNT 3.86 10^6/uL (4.70-6.10); RED CELL DISTRIBUTION WIDTH 14.6 % (12.0-15.0); WHITE BLOOD COUNT 10.1 x10^3/uL (4.8-10.8)
[2020-02-28 13:41] LABS: ALBUMIN 2.7 g/dL (3.2-5.5); ALBUMIN/GLOBULIN RATIO 1.1 (1.0-2.2); BILIRUBIN,TOTAL 0.9 mg/dL (0.2-1.0); CALCIUM 8.2 mg/dL (8.5-10.3); CREATININE 1.5 mg/dL (0.6-1.2); TOTAL PROTEIN 5.1 g/dL (6.7-8.2)
== END 2020-02-28 23:59 | disposition home or self-care (01) ==
LOC: LAB.R 05:30
DX: R79.89 Other specified abnormal findings of blood chemistry (principal); R68.89 Other general symptoms and signs; R62.7 Adult failure to thrive
CPT/HCPCS: 80053; 85025

== ENCOUNTER 2020-02-28 07:51 | Outpatient (CLI) | payer MEDICARE, OTHER | END 2020-02-28 07:52 | disposition critical access hospital (66) | LOC: EMS 07:51 | PROVIDERS: ATTEND Surgery | DX: R19.5 Other fecal abnormalities (principal); R03.1 Nonspecific low blood-pressure reading | CPT/HCPCS: A0425; A0427 ==

== ENCOUNTER 2020-03-02 14:48 | Outpatient (CLI) | payer MEDICARE, OTHER | END 2020-03-02 14:49 | disposition hospice, home (50) | LOC: EMS 14:48 | PROVIDERS: ATTEND Surgery | DX: R53.1 Weakness (principal); R41.82 Altered mental status, unspecified | CPT/HCPCS: A0425; A0428 ==